=== PATIENT | female | born 1945 | race Caucasian/White ===

== ENCOUNTER 2016-08-16 14:12 | Emergency (ER) | payer MEDICARE, OTHER ==
[~2016-08-16 14:12] MED LIST: BAYER CHEWABLE81 MG PO; CIPRO500 MG PO; DIABETA5 MG PO; DUTOPROL 100-11 EACH; FISH OIL 1,0001 CA1 PO; GLUCOPHAGE500 MG PO; K-TAB10 MEQ PO; METOPROLOL SUCC; NEURONTIN 400400 MG PO; NEXIUM20 MG PO; OSTEO BI-FLEX1 EAC1 PO; PREVACID30 MG PO; TOPROL XL25 MG PO; VITAMIN B-1000 MCG/M IM; VITAMIN D31000 UNI2 PO; ZYRTEC10 MG PO
[2016-08-16 17:13] LABS: HEMATOCRIT 25.8 % (36.0-48.0); HEMOGLOBIN 7.6 g/dL (12-16); MCH 21.2 pg (26.0-34.0); MCHC 29.5 g/dL (31.0-37.0); MCV 72.1 fL (80.0-100.0); MEAN PLATELET VOLUME 10.7 fL (7.4-10.4); PLATELET COUNT 97 10x3/uL (130-400); RBC 3.58 10x6/uL (4.00-5.40); RDW 16.3 % (11.5-14.5); WBC 2.7 10x3/uL (4.8-10.8)
[2016-08-16 17:26] LABS: ALBUMIN 3.4 g/dL (3.4-5.0); ANION GAP 10.1 mmol/L (8-16); BILIRUBIN - TOTAL 0.29 mg/dL (0.2-1.3); CALCIUM 8.6 mg/dL (8.5-10.1); CARBON DIOXIDE 30.4 mmol/L (21.0-32.0); CREATININE - SERUM 0.9 mg/dL (0.6-1.3); POTASSIUM - SERUM 3.5 mmol/L (3.5-5.1); PROTEIN - SERUM 6.6 g/dL (6.4-8.2)
[2016-08-16 18:06] LABS: BASOPHILS 1 % (0.0-2.0); EOSINOPHILS 1 % (0-7); LYMPHOCYTES 46 % (15-50); MONOCYTES 2 % (2-11); NEUTROPHILS 47 % (40-80); PLATELET ESTIMATE DECREASED
[2016-08-16 18:07] LABS: ANISOCYTOSIS 1+; HYPOCHROMASIA 1+; MICROCYTOSIS 1+; POIKILOCYTOSIS 1+; TARGET CELLS 1+
== END 2016-08-16 18:27 | disposition home or self-care (01) ==
LOC: D.ER 14:12
PROVIDERS: Physician Assistant
DX: G89.18 Other acute postprocedural pain (principal); D61.818 Other pancytopenia; C55 Malignant neoplasm of uterus, part unspecified; I10 Essential (primary) hypertension; E11.9 Type 2 diabetes mellitus without complications; K21.9 Gastro-esophageal reflux disease without esophagitis

== ENCOUNTER 2016-08-19 05:43 | Observation (INO) | payer MEDICARE, OTHER ==
[~2016-08-19] VITALS: Ht 170.2 cm; Wt 103.4 kg
[2016-08-19] VITALS (18 sets, daily range): BP systolic 125–177; BP diastolic 54–96; BMI 36.1
[2016-08-19 06:36] LABS: BASOPHILS 0.3 % (0.0-2.0); EOSINOPHILS 1.5 % (0-7); HEMOGLOBIN 8.1 g/dL (12-16); IMMATURE GRANULOCYTES 0.3 % (0-5); LYMPHOCYTES 24.1 % (15-50); MCH 20.9 pg (26.0-34.0); MCHC 28.9 g/dL (31.0-37.0); MCV 72.4 fL (80.0-100.0); MONOCYTES 10.8 % (2-11); PLATELET COUNT 98 10x3/uL (130-400); RBC 3.87 10x6/uL (4.00-5.40); RDW 16.6 % (11.5-14.5); WBC 3.3 10x3/uL (4.8-10.8)
[2016-08-19 07:00] LABS: ALBUMIN 3.3 g/dL (3.4-5.0); ANION GAP 15.2 mmol/L (8-16); BILIRUBIN - TOTAL 0.54 mg/dL (0.2-1.3); CALCIUM 8.8 mg/dL (8.5-10.1); CARBON DIOXIDE 23.8 mmol/L (21.0-32.0); PROTEIN - SERUM 6.6 g/dL (6.4-8.2)
[2016-08-19 07:03] LABS: MAGNESIUM - SERUM 1.6 mg/dL (1.8-2.4); PHOSPHOROUS 2.8 mg/dL (2.5-4.9); TROPONIN-I 0.057 ng/mL (0.000-0.060)
[2016-08-19 07:30] LABS: APPEARANCE CLEAR (CLEAR); BILIRUBIN NEGATIVE (NEGATIVE); COLOR YELLOW (YELLOW); GLUCOSE 1000 mg/dL (NEGATIVE); KETONE NEGATIVE (NEGATIVE); LEUKOCYTE ESTERASE NEGATIVE (NEGATIVE); NITRITE NEGATIVE (NEGATIVE); PROTEIN NEGATIVE (NEGATIVE); SPECIFIC GRAVITY 1.015 (1.005-1.020); UROBILINOGEN NORMAL (NORMAL)
--- NOTE | 2016-08-19 10:00 | NUR ---
RECEIVED ADULT FEMALE FROM ER PER WHEELCHAIR AFTER SBAR HANDOFF RECEIVED. PALE. SKIN WARM AND DRY. SLIGHTLY DYSPNEIC. O2 STARTED AT 2 LITER/MIN PER NASAL CANNULA. SEE ADMIT ASSESSMENT. ATTENTIVE AT BEDSIDE. PIV LEFT WRIST PATENT WITH SALINE LOCK AND NO SIGNS OF COMPLICATIONS. ORIENTED TO ROOM AND POC. NEW ORDER NOTED.
[2016-08-19] MEDS ORDERED: ULTRAM50 MG PO (11:14)
[2016-08-19] MEDS ORDERED: ZANAFLEX4 MG PO (11:15)
[2016-08-19] MEDS ORDERED: VITAMIN E600 UNIT PO (11:17)
[2016-08-19] MEDS ORDERED: ZYRTEC10 MG PO (11:17)
--- NOTE | 2016-08-19 11:50 | NUR ---
1ST UNIT PRBC BEGUN AT 125ML/HR PER IV PUMP WITH BLOOD TUBING. INSTRUCTED TO NOTIFY STAFF MARILYN IF ANY SIGNS OF TRANSFUSION REACTION NOTED; THAT IS DYSPNEA, ITCHING, COUGHING, ANXIETY, CHEST PAIN. IV PATENT WITH SALINE AND NO SIGNS OF COMPLICATIONS.
--- NOTE | 2016-08-19 12:20 | NUR ---
NO SIGNS OF TRANSFUSION REACTION; IV SITE PATENT WITH NO SIGNS OF COMPLICATIONS. REMAINS STABLE. AT BEDSIDE.
--- NOTE | 2016-08-19 13:20 | NUR ---
REMAINS STABLE WITH NO SIGNS OF TRANSFUSION REACTION.
--- NOTE | 2016-08-19 14:35 | NUR ---
TRANSFUSION COMPLETED; NO SIGNS OF REACTION. SALINE 50ML TO FLUSH TUBING. IV SITE REMAINS PATENT WITH NO SIGNS OF COMPLCIATIONS.
--- NOTE | 2016-08-19 15:20 | NUR ---
SECOND UNIT OF PRBC BEGUN WITH NEW IV BLOOD TUBING PRIMED WITH SALINE TO INFUSE AT 125ML /HR PER IV PUMP. NO SIGNS OF COMPLICATIONS AT IV SITE. DENIES DYSPNEA. HAS HAD 3 DIARRHEA STOOLS SINCE ADMISSION TODAY BUT NOT FREQUENT NOW.
--- NOTE | 2016-08-19 16:15 | NUR ---
REMAINS STABLE WITH NO SIGNS OF TRANSFUSION REACTION. IV SITE WITHOUT SIGNS OF COMPLICATIONS. NO DYSPNEA. COLOR PINK
--- NOTE | 2016-08-19 17:30 | NUR ---
TRANSFUSION COMPLETE. FAMILY ATTENTIVE AT BEDSIDE. NO SIGNS OF TRANSFUSION REACTION. IV PATENT WITH NO SIGNS OF COMPLICATIONS. IV SALINE BEGUN TO FLUSH BLOOD TUBING.
[2016-08-19] MEDS ORDERED: NEURONTIN600 MG PO (17:54)
[2016-08-19] MEDS ORDERED: TORADOL10 MG PO (17:54)
--- NOTE | 2016-08-19 18:00 | NUR ---
PIV SALINE LOCKED LEFT WRIST; NO SIGNS OF COMPLICATIONS. COLOR PINK. SKIN WARM AND DRY. O2 CONT AT 2 L/MIN PER NASAL CANNULA. DENIES DYSPNEA.
--- NOTE | 2016-08-19 19:50 | NUR ---
AWAKE DURING INITIAL ROUNDS. INTRODUCED SELF. V/S TAKEN. BP 164/81. ASSESSMENT DONE. STATUS Dx: CHF/ANEMIA/NEUROPATHY/DIABETES. SALINE LOCK TO L WRIST AREA INTACT. O2 SAT 98% ON 2L/NC. TELEMETRY ON--SR WITH OCCL PVC's PER DIRECTOR VIDEO. FALL RISK PREVENTION OBSERVED.
--- NOTE | 2016-08-19 20:44 | NUR ---
CALL LIGHT ANSWERED. PT STATES SHE NEEDS SOMETHING FOR DIARRHEA. CALL PLACED TO [facility]AY QUINTANILLA AP[facility] AND RETURNED CALL WITH ORDERS.
--- NOTE | 2016-08-19 21:57 | NUR ---
HS MEDS GIVEN. SEE E-MAR.
--- NOTE | 2016-08-19 22:09 | NUR ---
FSBS 245mg/dl. 8 UNITS REGULAR INSULIN GIVEN PER SLIDING SCALE.
[2016-08-20 00:20] VITALS: BP 130/48
--- NOTE | 2016-08-20 00:20 | NUR ---
AWAKENED FOR V/S--STABLE.
--- NOTE | 2016-08-20 03:08 | NUR ---
APPEARS TO BE ASLEEP. LEFT UNDISTURBED.
[2016-08-20 04:10] VITALS: BP 138/97
--- NOTE | 2016-08-20 04:10 | NUR ---
EYES CLOSED. AWAKENED FOR V/S.
--- NOTE | 2016-08-20 06:00 | NUR ---
BARN HAND HERE TO DRAW AM LAB. SLEPT FAIRLY WELL DURING THE NIGHT. CONTINUING PLAN OF CARE.
[2016-08-20 06:28] LABS: BASOPHILS 0.3 % (0.0-2.0); HEMATOCRIT 29.6 % (36.0-48.0); IMMATURE GRANULOCYTES 0.3 % (0-5); LYMPHOCYTES 27.2 % (15-50); MCH 22.7 pg (26.0-34.0); MCHC 30.4 g/dL (31.0-37.0); MONOCYTES 10.9 % (2-11); NEUTROPHILS 59.3 % (40-80); PLATELET COUNT 86 10x3/uL (130-400); RBC 3.97 10x6/uL (4.00-5.40); RDW 17.7 % (11.5-14.5); WBC 3.6 10x3/uL (4.8-10.8)
[2016-08-20 06:40] LABS: MCV 74.6 fL (80.0-100.0)
[2016-08-20 07:07] LABS: ALBUMIN 3.1 g/dL (3.4-5.0); ANION GAP 9.1 mmol/L (8-16); BILIRUBIN - TOTAL 0.7 mg/dL (0.2-1.3); CALCIUM 8.4 mg/dL (8.5-10.1); CARBON DIOXIDE 28.7 mmol/L (21.0-32.0); CREATININE - SERUM 0.9 mg/dL (0.6-1.3); POTASSIUM - SERUM 3.8 mmol/L (3.5-5.1); PROTEIN - SERUM 6.2 g/dL (6.4-8.2)
[2016-08-20 08:10] VITALS: BP 137/57
--- NOTE | 2016-08-20 08:10 | NUR ---
RECEIVED IN ROOM. AWAKE. UP IN BATHROOM. RETURNED TO BED. NOTED FORMED STOOL. C/O RECTAL PAIN. STATES SHE IS DOING SLIGHTLY BETTER TODAY. LUNGS AND ABD SOUNDS ASCULTATED. WNL. MOVES ALL EXTREM. NS LOCK PATENT TO LT. OPERATIONS PROFESSIONAL ON PT.
--- NOTE | 2016-08-20 10:30 | NUR ---
SITTING UP IN BED. AT BEDSIDE. NO COMPLAINTS VOICED. REFUSED ZANAFLEX FOR PAIN/ DISCOMFORT
[2016-08-20 10:45] VITALS: Ht 170.2 cm; Wt 103.4 kg
--- NOTE | 2016-08-20 11:43 | NUR ---
pt resting in bed. states she is hoping to go home today.
[2016-08-20] MEDS ORDERED: REMERON15 MG PO (12:19)
--- NOTE | 2016-08-20 13:13 | NUR ---
Is the patient Alert and Oriented? Yes 0 * How many steps to enter\exit or inside your home? 2 0 * PCP DR CADENA 0 * Pharmacy [facility] FOR IMMEDIATE NEEDS 0 * Preadmission Environment Home with Family 0 * ADLs Independent 0 * Equipment Walker 0 * List name and contact numbers for known caregivers / representatives who currently or will assist patient after discharge: SPOUSE: CHANTELLE POLLARD [phone] * Community resources currently utilized None 0 * Additional services required to return to the preadmission environment? Yes 0 * Can the patient safely return to the preadmission environment? Yes 0 * Has this patient been hospitalized within the prior 30 days at any hospital? No 0 Grand Total: 0 PATIENT IS AWAKE AND ALERT. SHE IS NOT WEARING HER O2. SHE TELLS ME THAT DR. MAYES WANTS O2 FOR HER AT DISCHARGE. I CHECKED AND DID NOT FIND AN ORDER AND I COULD NOT FIND AN O2 SAT DOCUMENTED LESS THAN 93% OTHER THAN ON ARRIVAL SHE WAS 90% ON ROOM AIR. PATIENT STATES IT WAS DURING THE NIGHT AND SHE WAS TOLD IT WAS 88%. I CONTACTED DR. MAYES AND HE WANTS HER TO HAVE AN OVERNIGHT PULSE OX. I HAVE CONTACTED TATE AT [facility] AND SHE STATES THAT IF I WILL SEND A FACE SHEET THEY WILL DELIVER THE PULSE OX TO THE PATIENT'S HOME AND PICK IT UP IN THE AM AND CALL DR. MAYES FOR ORDERS FOR O2 IF NEEDED. PATIENT AND UNDERSTAND THAT THEY WILL HAVE PULSE OX DELIVERED AFTER THEY GET HOME AND INSTRUCTED IN HOW TO WEAR IT TONIGHT. PATIENT LIVES AT HOME WITH HER SPOUSE, CHANTELLE POLLARD. HE WILL BE DRIVING HER HOME TODAY WHEN SHE IS DISCHARGED. PATIENT'S PCP IS DR. CADENA. SHE GETS HER [facility]. SHE GETS HER OTHER MEDS FROM [facility]. PATIENT STATES SHE HAS A WALKER. THERE ARE 2 STEPS TO ENTER HER HOME. NO OTHER NEEDS AT THIS TIME.
--- NOTE | 2016-08-20 14:00 | NUR ---
NS LOCK REMOVED. CANNULA INTACT. SITE WITHOUT EDEMA OR ERYTHEMA.
--- NOTE | 2016-08-20 14:35 | NUR ---
D/C INSTRUCTIONS GIVEN AND EXPLAINED TO PT AND . QUESTIONS ANSWERED. RX TO BE PROCESSED BY PT'S PHARM. TO DRIVE PT HOME. ALL PT BELONGINGS WITH PT. PT STATES SHE WILL TAKE ALL HER MEDS AFTER SHE GETS HOME. REVIEWED WHICH MEDS SHE HAS ALREADY RECEIVED TODAY. TO CAR VIA W/C
--- NOTE | 2016-08-27 14:38 | EC ---
PATIENT:LON POLLARD DATE OF SERVICE: 08/19/16 SEX: F MEDICAL RECORD: [id number] DATE OF : [birth year] [facility] AGE OF PATIENT: 71 ADMISSION DATE: 08/19/16 REFERRING PHYSICIAN: INTERPRETING PHYSICIAN: BENTON WHITT MD ECHOCARDIOGRAM REPORT ECHO CHARGES 4 ECHO COMPLETE CLINICAL DIAGNOSIS: ELEVATED BNP SOB HX CAD/STENTS ECHOCARDIOGRAPHIC MEASUREMENTS (adult normal given) AC root (d.<3.7cm) 3.2 LV Septum d (<1.2 cm> 1.4 Valve Excursion 2.0 LV Septum (systole) 1.7 Left Atria (s.<4.0cm> 3.9 LVPW d(<1.2cm) 1.6 RV (d.<2.3cm) 4.0 LVPW (sytole) 1.8 LV diastole(<5.6CM) 5.5 MV E-F(>70mm/sec) LV systole 3.6 LVOT Diameter 1.7 MV exc.(>10mm) 1.6 Est.ejection fraction (50-75%) Pericardial Effusion N DOPPLER: LVIT A 108 E 99.0 LA RVSP 42 LVOT 110 AOP1/2T Asc. Ao 165 RVOT 121 RA PA 138 AV Gradient Peak 10.95 AV Mean 6.95 AV Area 1.6 MV Gradient Peak 6.90 MV Mean 2.95 MV Area COMMENTS: Forensic Technician: Lainey PLASENCIA Bullet Maker:Lainey Kinney TAPE# PACS DATE OF SERVICE: 08/20/2016 Echocardiogram FINDINGS: 1. Left ventricular chamber size is within normal limits. Left ventricular systolic function is normal. Overall ejection fraction estimated at 55%. 2. Left atrium, right atrium and right ventricular chamber sizes are within normal limits. 3. Valvular structures have normal structure and motion. ECHOCARDIOGRAM REPORT [id number] LON POLLARD 4. Doppler interrogation reveals mild mitral regurgitation, mild tricuspid regurgitation, no other valvular insufficiency or stenosis and pulmonary systolic pressure is normal estimated 42 mmHg. 5. No evidence of pericardial effusion or left ventricular thrombus. TRANSINT:[id number] Voice Confirmation ID: [id number] DOCUMENT ID: [id number] BENTON WHITT MD at 7478 CC: [id number] DICTATION DATE: 08/20/16 1216 RN TELEMETRY: 08/20/16 1515 DIS IN 08/20/16 [place] [id number] [place] [id number]
== END 2016-08-20 15:49 | disposition home or self-care (01) ==
LOC: D.ER 05:43 → D.WS 09:55 → OBSVTIME 09:55 → D.WS 08-20 15:49
PROVIDERS: Surgery; ADMIT Family Medicine
DX: D64.9 Anemia, unspecified (principal); R55 Syncope and collapse; E11.65 Type 2 diabetes mellitus with hyperglycemia; E11.40 Type 2 diabetes mellitus with diabetic neuropathy, unspecified; G25.81 Restless legs syndrome; C55 Malignant neoplasm of uterus, part unspecified

== ENCOUNTER 2017-02-06 05:24 | Day surgery (SDC) | payer MEDICARE, OTHER ==
[2017-02-05 12:14] LABS: CREATININE - SERUM 0.7 mg/dL (0.6-1.3); UREA NITROGEN 10 mg/dL (7-18)
[2017-02-05 12:15] LABS: CALC OSMOLALITY 284 mosm/kg (275-300); CALCIUM 8.8 mg/dL (8.5-10.1); CARBON DIOXIDE 28.6 mmol/L (21.0-32.0); CHLORIDE - SERUM 104 mmol/L (98-107); POTASSIUM - SERUM 3.7 mmol/L (3.5-5.1); SODIUM 142 mmol/L (136-145); eGFR NON AFRICAN AMERICAN 88 mL/min (90-120)
[2017-02-05 12:16] LABS: GLUCOSE 144 mg/dL (74-106)
[2017-02-05 12:19] LABS: BASOPHILS 0.3 % (0-2); EOSINOPHILS 2.5 % (0-7); HEMATOCRIT 35.3 % (36.0-48.0); HEMOGLOBIN 11.8 g/dL (12-16); LYMPHOCYTES 39.8 % (15-50); MCH 29.9 pg (26.0-34.0); MCHC 33.4 g/dL (31.0-37.0); MCV 89.4 fL (80.0-100.0); MEAN PLATELET VOLUME 12.2 fL (7.4-10.4); MONOCYTES 11.7 % (2-11); NEUTROPHILS 45.7 % (40-80); RBC 3.95 10x6/uL (4.00-5.40); RDW 13.6 % (11.5-14.5); WBC 3.2 10x3/uL (4.8-10.8)
[2017-02-05 12:21] LABS: APTT 27.8 SECONDS (22.8-39.4); INR 0.98 (0.85-1.17); PLATELET COUNT 111 10x3/uL (130-400); PROTIME 12.8 SECONDS (11.6-15.0)
[~2017-02-06] VITALS: Ht 170.2 cm; Wt 95.7 kg
[~2017-02-06 05:24] MED LIST changes: +GLUCOPHAGE1000 MG PO; -GLUCOPHAGE500 MG PO; +NEURONTIN600 MG PO; +PROBIOTIC1 EAC1 PO; +REMERON15 MG PO; +TORADOL10 MG PO; +ULTRAM50 MG PO; +VITAMIN E600 UNIT PO; +ZANAFLEX4 MG PO; +ZYLOPRIM100 MG PO
[2017-02-06] MEDS ORDERED: SYNTHROID25 MCG PO (06:14)
[2017-02-06 06:19] VITALS: BP 146/50; Ht 170.2 cm; Wt 95.7 kg
--- NOTE | 2017-02-06 08:22 | NUR ---
PATIENT HAS NO SCD ON LEFT LOWER LEG DUE TO B\P CUFF ON LEFT LOWER LEG, KARLA.
[2017-02-06] MEDS ORDERED: DILAUDID2 MG PO (09:36)
--- NOTE | 2017-02-06 10:27 | NUR ---
THIS PATIENT BECOME NAUSEATED AFTER TRANSFERRING BACK TO OUTPATIENT. CONSULTED ANESTHESIA. GIVEN ORDERS TO ADMINISTER ZOFRAN 4MG IV X1 NOW. THIS WILL BE GIVEN IN OUTPATIENT.
--- NOTE | 2017-02-06 11:56 | NUR ---
1045--ZOFRAN 4MG GIVEN SIVP FOR NAUSEA, COOL WASH CLOTH PROVIDED. PT DENIES FURTHER NEEDS, WILL CONTINUE TO MONITOR. JATINDER LICONA
--- NOTE | 2017-02-06 12:00 | NUR ---
1200--PT VERBALIZES NAUSEA IS GONE, FULL LIQUID TRAY SERVED. PT DENIES FURTHER NEEDS, WILL CONTINUE TO MONITOR. JATINDER LICONA
--- NOTE | 2017-02-06 12:59 | NUR ---
1250--PT COMPLAINS OF DIZZINESS, LAYING WITH EYES CLOSED. WILL CONTINUE TO MONITOR. JATINDER RN
--- NOTE | 2017-02-06 16:31 | NUR ---
1500--PT VOIDS WITHOUT DIFFICULTY, IV DC'D. JATINDER LICONA 5106--DISCHARGE INSTRUCTIONS GIVEN, PT VERBALIZES UNDERSTANDING. PT OFF UNIT VIA WC. JATINDER LICONA
--- NOTE | 2017-02-07 13:45 | OP ---
PATIENT NAME: LON POLLARD MEDICAL RECORD: [id number] :[birth year] LOCATION:D.OPS ADMISSION DATE: SURGEON: REY GEIGER MD DATE OF OPERATION: 02/06/2017 PREOPERATIVE DIAGNOSES: 1. Ventral incisional hernia. 2. Umbilical hernia. 3. Diabetes mellitus. 4. Hyperlipidemia. 5. Coronary artery disease. 6. Gout. 7. Gastroesophageal reflux disease. 8. Fibromyalgia. POSTOPERATIVE DIAGNOSES: 1. Umbilical hernia. 2. Diabetes mellitus. 3. Hyperlipidemia. 4. Coronary artery disease. 5. Gout. 6. Gastroesophageal reflux disease. 7. Fibromyalgia. PROCEDURE: 1. Laparoscopic lysis of adhesions times 30 minutes. 2. Umbilical hernia repair without mesh. SURGEON: Rey Geiger MD REPORT OF PROCEDURE: The patient's abdomen was prepped and draped in sterile fashion. A Veress needle was inserted in the left upper quadrant and the abdomen was insufflated. A 5-mm trocar was placed in the left lateral abdomen. We inspected the Veress needle and saw there was no sign of any injury to bowel or surrounding structures. Another 5-mm trocar was placed in the right subcostal region. There was noted to be some adhesions present in the midline extending out to the right upper quadrant and underneath a right subcostal incision from a previous open cholecystectomy. The lysis of adhesions was performed of this fatty omental adhesions to the anterior abdominal wall. This was done carefully with sharp dissection and electrocautery. We eventually were able to get all the tissue off the anterior abdominal wall and could inspect it closely. I did a thorough inspection and saw no sign of a hernia being present. We could not find any signs at all that there was hernia tissue visible at this point, we inspected the periumbilical space was able to find a small umbilical hernia. At this point, we irrigated out the abdomen thoroughly with normal saline. There was some significant blood loss, it was there, but there did not appear to be any surgical bleeding. There seemed to be some diffuse oozing from the omental tissue from the lysis of adhesions. At this point, the ports and insufflation were then removed. A semicircular incision was made on the inferior aspect of the umbilicus. The umbilical tissue was transected just below the umbilicus through the patient's hernia sac. The hernia defect was dissected free from the hernia sac all the way down to the fascial edges. The hernia defect was about 2 cm wide and about 1 cm from top to bottom. We freed up the surface above and below the fascia and then reapproximated the fascia transversely using interrupted 0 Prolenes times 6. We then tacked the umbilicus OPERATIVE REPORT [id number] LON POLLARD down using the interrupted 3-0 Vicryl. After irrigating the wound out, then we reapproximated the subcutaneous tissues with interrupted 3-0 Vicryls. We infused with a total of 10 mL of the surrounding tissues of all the incisions and then closed the incisions with subcutaneous 5-0 Monocryl. COMPLICATIONS: None. CONDITION: Stable. ANESTHESIA: General endotracheal and local. BLOOD LOSS: 100 mL. TRANSINT:[id number] Voice Confirmation ID: [id number] DOCUMENT ID: [id number] REY GEIGER MD at 1345 CC: ARLEEN CADENA MD [id number] DICTATION DATE: 02/06/1742 MEAT GRADER: 02/06/17 1100 [facility] 02/06/17 [facility] [address] [place] [address]
== END 2017-02-06 15:15 | disposition home or self-care (01) ==
LOC: D.OPS 05:24 → D.PAN 07:30 → D.OPS 07:30
PROVIDERS: Anesthesiology; Surgery
DX: K43.2 Incisional hernia without obstruction or gangrene (principal); K42.9 Umbilical hernia without obstruction or gangrene; E11.9 Type 2 diabetes mellitus without complications; E78.5 Hyperlipidemia, unspecified; I25.10 Atherosclerotic heart disease of native coronary artery without angina pectoris; M10.9 Gout, unspecified; K21.9 Gastro-esophageal reflux disease without esophagitis; M79.7 Fibromyalgia; Z01.812 Encounter for preprocedural laboratory examination

== ENCOUNTER → 2017-07-07 13:27 | Outpatient (CLI) | payer MEDICARE, OTHER ==
[2017-02-06 06:19] VITALS: BMI 33.1
[~2017-07-07 13:27] MED LIST changes: +DILAUDID2 MG PO; +SYNTHROID25 MCG PO
== END | disposition home or self-care (01) ==
LOC: D.MAMMO 06-03 13:00
DX: Z12.31 Encounter for screening mammogram for malignant neoplasm of breast (principal)

== ENCOUNTER 2017-10-20 14:30 | Outpatient (CLI) | payer MEDICARE, OTHER ==
[2017-02-06 06:19] VITALS: BMI 33.1
== END 2017-10-20 23:59 | disposition home or self-care (01) ==
LOC: D.CT 14:30
DX: R10.9 Unspecified abdominal pain (principal)

== ENCOUNTER → 2017-11-12 09:55 | Outpatient (CLI) | payer MEDICARE, OTHER ==
[2017-02-06 06:19] VITALS: BMI 33.1
[2017-11-12 11:18] LABS: BILIRUBIN - DIRECT 0.21 mg/dL (0.00-0.30); BILIRUBIN - INDIRECT 0.39 mg/dL (0.00-1.00); BILIRUBIN - TOTAL 0.6 mg/dL (0.2-1.3); PROTEIN - SERUM 6.1 g/dL (6.4-8.2)
== END | disposition home or self-care (01) ==
LOC: D.LAB 09:55 → D.US 10:30
PROVIDERS: Internal Medicine Gastroenterology
DX: R93.8 Abnormal findings on diagnostic imaging of other specified body structures (principal); R10.9 Unspecified abdominal pain; R19.7 Diarrhea, unspecified; R12 Heartburn

== ENCOUNTER 2018-01-15 06:37 | Outpatient (CLI) | payer MEDICARE, OTHER ==
[~2018-01-15] VITALS: Ht 170.2 cm; Wt 91.8 kg
[2018-01-15 07:05] LABS: BASOPHILS 0.7 % (0-2); EOSINOPHILS 3.1 % (0-7); HEMATOCRIT 31.5 % (36.0-48.0); HEMOGLOBIN 10.1 g/dL (12-16); LYMPHOCYTES 40.3 % (15-50); MCH 28.2 pg (26.0-34.0); MCHC 32.1 g/dL (31.0-37.0); MEAN PLATELET VOLUME 11.4 fL (7.4-10.4); MONOCYTES 9.9 % (2-11); PLATELET COUNT 119 10x3/uL (130-400); RBC 3.58 10x6/uL (4.00-5.40); RDW 13.8 % (11.5-14.5); WBC 2.9 10x3/uL (4.8-10.8)
[2018-01-15 07:19] LABS: INR 1.16 (0.85-1.17); PROTIME 14.4 SECONDS (11.6-15.0)
[2018-01-15 07:20] LABS: APTT 32.8 SECONDS (22.8-39.4); CALC OSMOLALITY 282 mosm/kg (275-300); CALCIUM 8.3 mg/dL (8.5-10.1); CARBON DIOXIDE 29.1 mmol/L (21.0-32.0); CHLORIDE - SERUM 106 mmol/L (98-107); CREATININE - SERUM 0.7 mg/dL (0.6-1.3); GLUCOSE 124 mg/dL (74-106); POTASSIUM - SERUM 3.9 mmol/L (3.5-5.1); SODIUM 142 mmol/L (136-145); UREA NITROGEN 11 mg/dL (7-18); eGFR NON AFRICAN AMERICAN 88 mL/min (90-120)
[2018-01-15] MEDS ORDERED: OMEPRAZOLE40 MG PO (07:27)
[2018-01-15] MEDS ORDERED: CARAFATE1 G (07:28)
[2018-01-15 07:29] VITALS: BP 126/50; Ht 170.2 cm; Wt 91.8 kg
[2018-01-15 11:24] LABS: NEUT - BF 1 %
[2018-01-15 11:25] LABS: MACROPHAGES BF 19 %; MESOTHELIALS BF 18 %
== END 2018-01-15 13:05 | disposition home or self-care (01) ==
LOC: D.SP 06:37 → D.CT 09:00 → D.RAD 09:00 → D.SP 13:05
PROVIDERS: Specialist
DX: R18.8 Other ascites (principal); Z01.812 Encounter for preprocedural laboratory examination

== ENCOUNTER → 2018-01-19 08:35 | Outpatient (CLI) | payer MEDICARE, OTHER ==
[2018-01-15 07:29] VITALS: BMI 31.7
[~2018-01-19 08:35] MED LIST changes: +CARAFATE1 G; +OMEPRAZOLE40 MG PO; +VITAMIN E1000 UNI1 PO
[2018-01-19 09:39] LABS: % SATURATION 8 % (15-55); IRON 33 ug/dl (35-150); TOTAL IRON BIND CAPACITY 394 ug/dl (260-445); UNSAT IRON BIND CAPACITY 361 ug/dl (150-375)
[2018-01-20 07:32] LABS: HEPATITIS C ANTIBODY 0.1 (0.0-0.9)
[2018-01-20 10:19] LABS: ANA REFLEX - DIRECT Negative (Negative)
[2018-01-20 11:20] LABS: ALPHA FETOPROTEIN -(TUMOR MRK) 6.2 ng/mL (0.0-8.3)
[2018-01-21 15:25] LABS: MITOCHONDRIAL ANTIBODY 31.5 Units (0.0-20.0); SMOOTH MUSCLE ABS (ACTIN) 11 Units (0-19)
== END | disposition home or self-care (01) ==
LOC: D.MRI 08:00 → D.LAB 08:35 → D.MRI 09:00
PROVIDERS: Internal Medicine Gastroenterology
DX: K76.6 Portal hypertension (principal); I83.90 Asymptomatic varicose veins of unspecified lower extremity; R93.8 Abnormal findings on diagnostic imaging of other specified body structures; D36.9 Benign neoplasm, unspecified site

== ENCOUNTER 2018-02-20 08:56 | Outpatient (CLI) | payer MEDICARE, OTHER ==
[~2018-02-20] VITALS: Ht 170.2 cm; Wt 88.6 kg
[~2018-02-20 08:56] MED LIST changes: -VITAMIN E1000 UNI1 PO
[2018-02-20 09:16] LABS: BASOPHILS 0.3 % (0-2); EOSINOPHILS 2.7 % (0-7); HEMATOCRIT 29.9 % (36.0-48.0); HEMOGLOBIN 9.6 g/dL (12-16); LYMPHOCYTES 39.1 % (15-50); MCH 26.9 pg (26.0-34.0); MCHC 32.1 g/dL (31.0-37.0); MCV 83.8 fL (80.0-100.0); MEAN PLATELET VOLUME 10.8 fL (7.4-10.4); MONOCYTES 10.8 % (2-11); NEUTROPHILS 47.1 % (40-80); PLATELET COUNT 94 10x3/uL (130-400); RBC 3.57 10x6/uL (4.00-5.40); RDW 15.6 % (11.5-14.5)
[2018-02-20 09:32] LABS: ANION GAP 9.8 mmol/L (8-16); CALCIUM 8.4 mg/dL (8.5-10.1); CARBON DIOXIDE 28.6 mmol/L (21.0-32.0); CREATININE - SERUM 0.9 mg/dL (0.6-1.3); POTASSIUM - SERUM 3.4 mmol/L (3.5-5.1)
[2018-02-20 09:40] LABS: APTT 30.6 SECONDS (22.8-39.4); INR 1.16 (0.85-1.17); PROTIME 14.4 SECONDS (11.6-15.0)
[2018-02-20 09:57] LABS: PLATELET ESTIMATE DECREASED
[2018-02-20] MEDS ORDERED: VITAMIN E1000 UNI1 PO (10:06)
[2018-02-20 10:43] VITALS: BP 136/61; Ht 170.2 cm; Wt 88.6 kg
== END 2018-02-20 15:30 | disposition home or self-care (01) ==
LOC: D.SP 08:56 → D.CT 11:00 → D.SP 11:00
PROVIDERS: Radiology Diagnostic Radiology
DX: K74.60 Unspecified cirrhosis of liver (principal); E11.65 Type 2 diabetes mellitus with hyperglycemia; E11.40 Type 2 diabetes mellitus with diabetic neuropathy, unspecified; G25.81 Restless legs syndrome; Z01.812 Encounter for preprocedural laboratory examination

== ENCOUNTER → 2018-04-28 14:28 | Outpatient (CLI) | payer MEDICARE, OTHER ==
[2018-02-20 10:43] VITALS: BMI 30.6
[~2018-04-28 14:28] MED LIST changes: +VITAMIN E1000 UNI1 PO
== END | disposition home or self-care (01) ==
LOC: D.CT 14:28
DX: R10.9 Unspecified abdominal pain (principal)

== ENCOUNTER 2018-05-06 16:06 | Inpatient (IN) | payer MEDICARE, OTHER ==
[~2018-05-06] VITALS: Ht 170.2 cm; Wt 90.7 kg
--- NOTE | ~2018-05-06 | MORECARE ---
CASE MANAGEMENT DISCHARGE SUMMARY PATIENT: LON POLLARD UNIT: [id number] ADM DATE: 05/06/18 AGE: 72 : [birth year] SEX: F ROOM/BED: D.2218 AUTHOR: ALO MARINO PHYSICIAN: REFERRING PHYSICIAN: ARLEEN CADENA MD DATE OF SERVICE: 05/07/18 Discharge Plan Patient Name: LON POLLARD Facility: [facility]:[place] : 1945 Planned Disposition: Home Anticipated Discharge Date: Discharge Date: Expected LOS: Initial Reviewer: [email or web address] Initial Review Date: 05/06/2018 Generated: 05/07/18 3:01 pm Comments DCP- Discharge Planning Updated by [email or web address]: Trini Milton on 05/07/18 12:[address] Patient Name: LON POLLARD Admission Status: Elective Accout number: [id number] Admission Date: 05-06-2018 : 1945 Admission Diagnosis: Attending: ARLEEN NGUYEN Current LOS: 1 Anticipated DC Date: Planned Disposition: Home Primary Insurance: MEDICARE A & B Discharge Planning Comments: CM met with patient to assess discharge planning needs. Patient stated that she is independent with her care at home. She plans to return there at [place]. Her will be the one to drive her home. She denies any DME and does not use any HH, nor does she think she will need it when she goes home. CM will continue to follow and assist with DC planning Ships Or Barges Loader: Trini Milton DCPIA - Discharge Planning Initial Assessment Updated by [email or web address]: Trini Milton on 05/07/18 1:54 pm * Is the patient Alert and Oriented? Yes * How many steps to enter\exit or inside your home? * PCP TAJ * Pharmacy [facility] [address] * Preadmission Environment Home Alone * ADLs Independent * Equipment None * List name and contact numbers for known caregivers / representatives who currently or will assist patient after discharge: CHANTELLE () [phone] * Verbal permission to speak to the caregivers and representatives has been obtained from the patient. Yes * Community resources currently utilized None * Additional services required to return to the preadmission environment? No * Can the patient safely return to the preadmission environment? Yes * Has this patient been hospitalized within the prior 30 days at any hospital? No Patient Name: LON POLLARD Page [phone] at 1401 All edits/amendments must be made on the electronic document DICTATION DATE: 05/07/18 1400 FIRE ENGINE PUMP OPERATOR: HALIE 05/07/18 1400 RPT#: [id number] DC DATE: STATUS: ADM IN [facility] [address] [place] [address] END OF REPORT
[2018-05-06 17:07] LABS: BASOPHILS 0.3 % (0-2); EOSINOPHILS 1.9 % (0-7); HEMATOCRIT 32.3 % (36.0-48.0); HEMOGLOBIN 10.7 g/dL (12-16); IMMATURE GRANULOCYTES 0.3 % (0-5); LYMPHOCYTES 33.5 % (15-50); MCH 28.9 pg (26.0-34.0); MCHC 33.1 g/dL (31.0-37.0); MCV 87.3 fL (80.0-100.0); MEAN PLATELET VOLUME 11.1 fL (7.4-10.4); MONOCYTES 11.9 % (2-11); NEUTROPHILS 52.1 % (40-80); WBC 3.6 10x3/uL (4.8-10.8)
[2018-05-06 17:19] LABS: PLATELET COUNT 137 10x3/uL (130-400)
[2018-05-06 17:26] VITALS: BP 148/53; BMI 31.4
[2018-05-06 17:53] LABS: ALKALINE PHOSPHATASE 67 U/L (46-116); AMYLASE - SERUM 9 U/L (25-115); CALCIUM 8.4 mg/dL (8.5-10.1); CARBON DIOXIDE 27.9 mmol/L (21.0-32.0); LIPASE 124 U/L (73-393); PROTEIN - SERUM 5.3 g/dL (6.4-8.2); UREA NITROGEN 12 mg/dL (7-18)
[2018-05-06 18:05] LABS: ALT (SGPT) 21 U/L (10-68); CALC OSMOLALITY 279 mosm/kg (275-300); CHLORIDE - SERUM 105 mmol/L (98-107); CREATININE - SERUM 0.7 mg/dL (0.6-1.3); POTASSIUM - SERUM 3.2 mmol/L (3.5-5.1); SODIUM 141 mmol/L (136-145); eGFR NON AFRICAN AMERICAN 88 mL/min (90-120)
[2018-05-06 18:08] LABS: GLUCOSE 81 mg/dL (74-106)
[2018-05-06 19:05] LABS: APPEARANCE CLEAR (CLEAR); BILIRUBIN NEGATIVE (NEGATIVE); COLOR YELLOW (YELLOW); GLUCOSE NEGATIVE (NEGATIVE); KETONE NEGATIVE (NEGATIVE); NITRITE NEGATIVE (NEGATIVE); PROTEIN NEGATIVE (NEGATIVE); SPECIFIC GRAVITY 1.015 (1.005-1.020); UROBILINOGEN NORMAL (NORMAL)
[2018-05-06 19:07] LABS: BACTERIA FEW /hpf (NONE SEEN); EPITHELIAL CELLS OCC /hpf (0-5); WHITE CELLS - URINE 0-5 /hpf (0-5)
[2018-05-06 20:00] VITALS: BP 148/47
[2018-05-07 04:49] VITALS: BP 150/50
[2018-05-07 08:33] VITALS: BP 136/60
[2018-05-07 09:22] LABS: HEMOGLOBIN 10.6 g/dL (12-16); MCH 28.7 pg (26.0-34.0); MCHC 33.1 g/dL (31.0-37.0); MCV 86.7 fL (80.0-100.0); MEAN PLATELET VOLUME 10.3 fL (7.4-10.4); PLATELET COUNT 117 10x3/uL (130-400); RBC 3.69 10x6/uL (4.00-5.40); RDW 16.1 % (11.5-14.5); WBC 2.8 10x3/uL (4.8-10.8)
[2018-05-07 09:32] LABS: CALC OSMOLALITY 289 mosm/kg (275-300); CALCIUM 8.1 mg/dL (8.5-10.1); CARBON DIOXIDE 28.7 mmol/L (21.0-32.0); CHLORIDE - SERUM 108 mmol/L (98-107); CREATININE - SERUM 0.7 mg/dL (0.6-1.3); GLUCOSE 102 mg/dL (74-106); POTASSIUM - SERUM 3.3 mmol/L (3.5-5.1); SODIUM 146 mmol/L (136-145); UREA NITROGEN 9 mg/dL (7-18); eGFR NON AFRICAN AMERICAN 88 mL/min (90-120)
[2018-05-07 10:11] LABS: EOSINOPHILS 2 % (0-7); HYPOCHROMASIA OCC; LYMPHOCYTES 45 % (15-50); MONOCYTES 9 % (2-11); NEUTROPHILS 44 % (40-80); PLATELET ESTIMATE DECREASED; ROULEAUX OCC
[2018-05-07 12:00] VITALS: BP 111/53
[2018-05-07 12:54] VITALS: Ht 170.2 cm; Wt 90.7 kg
[2018-05-07 13:10] LABS: INR 1.18 (0.85-1.17); PROTIME 14.5 SECONDS (11.6-15.0)
[2018-05-07 14:08] LABS: % SATURATION 20 % (15-55); IRON 57 ug/dl (35-150); TOTAL IRON BIND CAPACITY 272 ug/dl (260-445); UNSAT IRON BIND CAPACITY 215 ug/dl (150-375)
[2018-05-07 16:20] VITALS: BP 148/52
[2018-05-07 20:00] VITALS: BP 151/56
[2018-05-08] VITALS: BP 112/40
[2018-05-08 04:00] VITALS: BP 121/42
[2018-05-08 06:13] LABS: BASOPHILS 0.4 % (0-2); EOSINOPHILS 2.4 % (0-7); HEMATOCRIT 28.9 % (36.0-48.0); HEMOGLOBIN 9.3 g/dL (12-16); MCH 28.1 pg (26.0-34.0); MCHC 32.2 g/dL (31.0-37.0); MCV 87.3 fL (80.0-100.0); MEAN PLATELET VOLUME 11.5 fL (7.4-10.4); MONOCYTES 15.2 % (2-11); PLATELET COUNT 109 10x3/uL (130-400); RBC 3.31 10x6/uL (4.00-5.40); WBC 2.5 10x3/uL (4.8-10.8)
[2018-05-08 06:25] LABS: ALBUMIN 2.5 g/dL (3.4-5.0); ALKALINE PHOSPHATASE 67 U/L (46-116); ALT (SGPT) 17 U/L (10-68); BILIRUBIN - TOTAL 0.41 mg/dL (0.2-1.3); CALC OSMOLALITY 276 mosm/kg (275-300); CALCIUM 7.8 mg/dL (8.5-10.1); CARBON DIOXIDE 26.1 mmol/L (21.0-32.0); CHLORIDE - SERUM 106 mmol/L (98-107); CREATININE - SERUM 0.7 mg/dL (0.6-1.3); GLUCOSE 89 mg/dL (74-106); POTASSIUM - SERUM 3.4 mmol/L (3.5-5.1); PROTEIN - SERUM 5.9 g/dL (6.4-8.2); SODIUM 140 mmol/L (136-145); UREA NITROGEN 11 mg/dL (7-18); eGFR NON AFRICAN AMERICAN 88 mL/min (90-120)
[2018-05-08 07:17] LABS: APTT 36.9 SECONDS (22.8-39.4); INR 1.23 (0.85-1.17)
[2018-05-08 08:21] LABS: FOLATE (FOLIC ACID) - SERUM 12.2 ng/mL (>3.0)
[2018-05-08 09:03] VITALS: BP 139/52
[2018-05-08 10:57] LABS: PROTEIN - BODY FLUID 1.4 G/DL
[2018-05-08 12:08] LABS: MACROPHAGES BF 16 %; MESOTHELIALS BF 13 %; NEUT - BF 7 %
[2018-05-08 12:33] VITALS: BP 132/45
[2018-05-08 16:38] VITALS: BP 154/47
[2018-05-08 19:54] VITALS: BP 161/55
[2018-05-09] VITALS (7 sets, daily range): BP systolic 111–136; BP diastolic 42–88
[2018-05-09 05:27] LABS: BASOPHILS 0.4 % (0-2); EOSINOPHILS 2.2 % (0-7); HEMATOCRIT 28.3 % (36.0-48.0); HEMOGLOBIN 9.3 g/dL (12-16); LYMPHOCYTES 46.6 % (15-50); MCH 28.6 pg (26.0-34.0); MCHC 32.9 g/dL (31.0-37.0); MCV 87.1 fL (80.0-100.0); MEAN PLATELET VOLUME 11.2 fL (7.4-10.4); MONOCYTES 12.1 % (2-11); NEUTROPHILS 38.7 % (40-80); PLATELET COUNT 107 10x3/uL (130-400); RBC 3.25 10x6/uL (4.00-5.40); RDW 15.7 % (11.5-14.5); WBC 2.3 10x3/uL (4.8-10.8)
[2018-05-09 05:38] LABS: CALC OSMOLALITY 275 mosm/kg (275-300); CALCIUM 7.7 mg/dL (8.5-10.1); CARBON DIOXIDE 28.2 mmol/L (21.0-32.0); CHLORIDE - SERUM 105 mmol/L (98-107); CREATININE - SERUM 0.7 mg/dL (0.6-1.3); GLUCOSE 88 mg/dL (74-106); MAGNESIUM - SERUM 1.2 mg/dL (1.8-2.4); POTASSIUM - SERUM 3.8 mmol/L (3.5-5.1); SODIUM 139 mmol/L (136-145); UREA NITROGEN 9 mg/dL (7-18); eGFR NON AFRICAN AMERICAN 88 mL/min (90-120)
[2018-05-09] MEDS ORDERED: LASIX40 MG PO (13:00)
[2018-05-09] MEDS ORDERED: ALDACTONE100 MG PO (13:01)
== END 2018-05-09 16:33 | disposition home or self-care (01) | DRG 433 ==
LOC: D.MS 16:06
PROVIDERS: Family Medicine; General Practice; Internal Medicine Nephrology; Specialist
PROC: 0W9G3ZZ Drainage of Peritoneal Cavity, Percutaneous Approach (ICD-10-PCS; principal; 2018-05-08 07:58)
DX: K74.60 Unspecified cirrhosis of liver (principal); D61.818 Other pancytopenia; L03.311 Cellulitis of abdominal wall; E11.9 Type 2 diabetes mellitus without complications; I10 Essential (primary) hypertension; I25.10 Atherosclerotic heart disease of native coronary artery without angina pectoris; K21.9 Gastro-esophageal reflux disease without esophagitis; E87.6 Hypokalemia; E78.5 Hyperlipidemia, unspecified

== ENCOUNTER → 2018-07-21 08:49 | Outpatient (CLI) | payer MEDICARE, OTHER ==
[2018-05-07 12:54] VITALS: BMI 31.3
[~2018-07-21 08:49] MED LIST changes: +ALDACTONE100 MG PO; +LASIX40 MG PO
[2018-07-21 09:58] LABS: BASOPHILS 0.8 % (0-2); HEMATOCRIT 30.9 % (36.0-48.0); HEMOGLOBIN 10.1 g/dL (12-16); IMMATURE GRANULOCYTES 0.3 % (0-5); LYMPHOCYTES 31.8 % (15-50); MCH 28.5 pg (26.0-34.0); MCHC 32.7 g/dL (31.0-37.0); MEAN PLATELET VOLUME 11.6 fL (7.4-10.4); MONOCYTES 11.7 % (2-11); NEUTROPHILS 51.4 % (40-80); RBC 3.55 10x6/uL (4.00-5.40); RDW 14.2 % (11.5-14.5); WBC 3.8 10x3/uL (4.8-10.8)
[2018-07-21 09:59] LABS: PLATELET COUNT 139 10x3/uL (130-400)
[2018-07-21 10:09] LABS: ALBUMIN 3.3 g/dL (3.4-5.0); BILIRUBIN - DIRECT 0.13 mg/dL (0.00-0.30); BILIRUBIN - INDIRECT 0.22 mg/dL (0.00-1.00); BILIRUBIN - TOTAL 0.35 mg/dL (0.2-1.3)
[2018-07-21 10:11] LABS: INR 1.09 (0.85-1.17); PROTIME 13.6 SECONDS (11.6-15.0)
== END | disposition home or self-care (01) ==
LOC: D.US 05-05 09:00 → D.LAB 05-05 09:30 → D.US 08:49
PROVIDERS: Internal Medicine Gastroenterology
DX: K76.0 Fatty (change of) liver, not elsewhere classified (principal); R94.5 Abnormal results of liver function studies; K74.60 Unspecified cirrhosis of liver

== ENCOUNTER → 2019-01-18 09:00 | Outpatient (CLI) | payer MEDICARE, OTHER ==
[2018-05-07 12:54] VITALS: BMI 31.3
[~2019-01-18 09:00] MED LIST changes: -DIABETA5 MG PO; +GLYBURIDE5 M1 PO; +VITAMIN B-121000 MCG PO
[2019-01-18 09:43] LABS: HEMATOCRIT 23.7 % (36.0-48.0); MCH 24.4 pg (26.0-34.0); MCHC 31.6 g/dL (31.0-37.0); MCV 77.2 fL (80.0-100.0); MEAN PLATELET VOLUME 10.4 fL (7.4-10.4); PLATELET COUNT 113 10x3/uL (130-400); RBC 3.07 10x6/uL (4.00-5.40); RDW 15.3 % (11.5-14.5); WBC 2.8 10x3/uL (4.8-10.8)
[2019-01-18 09:48] LABS: HEMOGLOBIN 7.5 g/dL (12-16)
[2019-01-18 09:54] LABS: INR 1.12 (0.85-1.17); PROTIME 13.9 SECONDS (11.6-15.0)
[2019-01-18 10:02] LABS: BILIRUBIN - DIRECT 0.11 mg/dL (0.00-0.30); BILIRUBIN - INDIRECT 0.33 mg/dL (0.00-1.00); BILIRUBIN - TOTAL 0.44 mg/dL (0.2-1.3); PROTEIN - SERUM 6.4 g/dL (6.4-8.2)
[2019-01-18 12:35] LABS: LYMPHOCYTES 32 % (15-50); MONOCYTES 15 % (2-11); NEUTROPHILS 52 % (40-80); PLATELET ESTIMATE DECREASED
[2019-01-18 12:37] LABS: ROULEAUX OCC
== END | disposition home or self-care (01) ==
LOC: D.US 09:00
PROVIDERS: ATTEND Internal Medicine Gastroenterology
DX: K74.60 Unspecified cirrhosis of liver (principal)

== ENCOUNTER 2019-01-18 16:38 | Inpatient (IN) | payer MEDICARE, OTHER ==
[~2019-01-18] VITALS: Ht 170.2 cm; Wt 86.4 kg
[2019-01-18 17:29] LABS: BASOPHILS 0.3 % (0-2); EOSINOPHILS 2.2 % (0-7); HEMATOCRIT 25.2 % (36.0-48.0); LYMPHOCYTES 33.1 % (15-50); MCH 24.6 pg (26.0-34.0); MCHC 31.7 g/dL (31.0-37.0); MCV 77.5 fL (80.0-100.0); MEAN PLATELET VOLUME 10.3 fL (7.4-10.4); MONOCYTES 14.4 % (2-11); PLATELET COUNT 130 10x3/uL (130-400); RBC 3.25 10x6/uL (4.00-5.40); RDW 15.2 % (11.5-14.5)
[2019-01-18 17:31] LABS: WBC 3.6 10x3/uL (4.8-10.8)
[2019-01-18 17:47] LABS: ALBUMIN 3.2 g/dL (3.4-5.0); ANION GAP 17.5 mmol/L (8-16); BILIRUBIN - TOTAL 0.38 mg/dL (0.2-1.3); CALCIUM 8.9 mg/dL (8.5-10.1); CARBON DIOXIDE 20.6 mmol/L (21.0-32.0); POTASSIUM - SERUM 4.1 mmol/L (3.5-5.1); PROTEIN - SERUM 7.1 g/dL (6.4-8.2)
[2019-01-18 23:27] VITALS: BP 139/53
[2019-01-18 23:43] VITALS: BP 148/46
[2019-01-19 01:49] VITALS: BP 130/43; BMI 29.8
[2019-01-19 06:58] VITALS: BP 89/43
[2019-01-19 07:00] LABS: BASOPHILS 0.3 % (0-2); EOSINOPHILS 2.1 % (0-7); HEMATOCRIT 28.8 % (36.0-48.0); HEMOGLOBIN 9.4 g/dL (12-16); IMMATURE GRANULOCYTES 0.3 % (0-5); MCH 25.2 pg (26.0-34.0); MCHC 32.6 g/dL (31.0-37.0); MCV 77.2 fL (80.0-100.0); MEAN PLATELET VOLUME 11.2 fL (7.4-10.4); MONOCYTES 15.4 % (2-11); NEUTROPHILS 45.9 % (40-80); PLATELET COUNT 129 10x3/uL (130-400); RBC 3.73 10x6/uL (4.00-5.40); RDW 15.4 % (11.5-14.5); WBC 3.3 10x3/uL (4.8-10.8)
[2019-01-19 07:20] LABS: % SATURATION 39 % (15-55); IRON 190 ug/dl (35-150); TOTAL IRON BIND CAPACITY 486 ug/dl (260-445); UNSAT IRON BIND CAPACITY 296 ug/dl (150-375)
[2019-01-19 07:45] LABS: ALBUMIN 3.1 g/dL (3.4-5.0); ANION GAP 14.9 mmol/L (8-16); BILIRUBIN - TOTAL 1.19 mg/dL (0.2-1.3); CALCIUM 8.4 mg/dL (8.5-10.1); CARBON DIOXIDE 23.2 mmol/L (21.0-32.0); CREATININE - SERUM 1.1 mg/dL (0.6-1.3); MAGNESIUM - SERUM 1.2 mg/dL (1.8-2.4); POTASSIUM - SERUM 4.1 mmol/L (3.5-5.1); PROTEIN - SERUM 6.3 g/dL (6.4-8.2)
[2019-01-19 08:00] VITALS: BP 145/46
[2019-01-19 09:46] VITALS: Ht 170.2 cm; Wt 86.4 kg
--- NOTE | 2019-01-19 11:50 | MORECARE ---
CASE MANAGEMENT DISCHARGE SUMMARY PATIENT: LON POLLARD UNIT: [id number] ADM DATE: 01/18/19 AGE: 73 : [birth year] SEX: F ROOM/BED: D.1206 AUTHOR: ALO MARINO PHYSICIAN: REFERRING PHYSICIAN: SHANT RASHID DO DATE OF SERVICE: 01/19/19 Discharge Plan Patient Name: LON POLLARD Facility: [facility]:[place] : 1945 Planned Disposition: Home Anticipated Discharge Date: 01/19/19 Discharge Date: 01/19/2019 Expected LOS: 1 Initial Reviewer: [email or web address] Initial Review Date: 01/18/2019 Generated: 01/19/19 12:50 pm DCPIA - Discharge Planning Initial Assessment Updated by [email or web address]: Lucy Ly on 01/19/19 11:48 am * Is the patient Alert and Oriented? Yes * How many steps to enter\exit or inside your home? One * PCP Dr. Jones * Pharmacy [facility] * Preadmission Environment Home with Family * ADLs Independent * Equipment Bedside Commode Cane Rolling Walker * List name and contact numbers for known caregivers / representatives who currently or will assist patient after discharge: [facility] - [phone] * Verbal permission to speak to the caregivers and representatives has been obtained from the patient. Yes * Community resources currently utilized None * Additional services required to return to the preadmission environment? No * Can the patient safely return to the preadmission environment? Yes * Has this patient been hospitalized within the prior 30 days at any hospital? No Patient Name: LON POLLARD Page [phone] at 1150 All edits/amendments must be made on the electronic document DICTATION DATE: 01/19/19 1150 SOLDERER ASSEMBLY REPAIR: HALIE 01/19/19 1150 RPT#: [id number] DC DATE:01/19/19 STATUS: DIS IN [facility] [address] [place] [address] END OF REPORT
--- NOTE | 2019-01-19 11:59 | MORECARE ---
CASE MANAGEMENT DISCHARGE SUMMARY PATIENT: LON POLLARD UNIT: [id number] ADM DATE: 01/18/19 AGE: 73 : [birth year] SEX: F ROOM/BED: D.1206 AUTHOR: ALO MARINO PHYSICIAN: REFERRING PHYSICIAN: SHANT RASHID DO DATE OF SERVICE: 01/19/19 Discharge Plan Patient Name: LON POLLARD Facility: [facility]:[place] : 1945 Planned Disposition: Home Anticipated Discharge Date: 01/19/19 Discharge Date: 01/19/2019 Expected LOS: 1 Initial Reviewer: SARAH Initial Review Date: 01/18/2019 Generated: 01/19/19 12:59 pm DCP- Discharge Planning Updated by [email or web address]: Lucy Ly on 01/19/19 10:[address] Patient Name: LON POLLARD Admission Status: ER Accout number: [id number] Admission Date: 01-18-2019 : 1945 Admission Diagnosis: Attending: SHANT RASHID Current LOS: 1 Anticipated DC Date: 01-19-2019 Planned Disposition: Home Primary Insurance: MEDICARE A & B Discharge Planning Comments: DC PLAN: Return home with her independently. DC NEEDS: Denied dc needs at this time. CM met with patient to complete initial dc planning assessment. CM educated patient on the CM role and verbal consent given by patient to complete assessment. CM verified patient's address, phone number, and emergency contact phone numbers. Patient lives at home with her . At discharge patient plans to return home and feels this is a safe discharge. Patient is discharging home today. CM discussed availability of home health, rehab services, and medical equipment. Patient denied discharge needs at this time. Patient reports her will transport her home at time of discharge. CM will continue to follow and will assist as needed with dc plans/needs. Director Hospice Operations: Lucy Ly RN, [facility] DCPIA - Discharge Planning Initial Assessment Updated by [email or web address]: Lucy Ly on 01/19/19 11:48 am * Is the patient Alert and Oriented? Yes * How many steps to enter\exit or inside your home? One * PCP Dr. Jones * Pharmacy [facility] * Preadmission Environment Home with Family * ADLs Independent * Equipment Bedside Commode Cane Rolling Walker * List name and contact numbers for known caregivers / representatives who currently or will assist patient after discharge: John orantes - [phone] * Verbal permission to speak to the caregivers and representatives has been obtained from the patient. Yes * Community resources currently utilized None * Additional services required to return to the preadmission environment? No * Can the patient safely return to the preadmission environment? Yes * Has this patient been hospitalized within the prior 30 days at any hospital? No Last DP export: 01/19/19 10:50 a Patient Name: LON POLLARD Page 13609 at 1159 All edits/amendments must be made on the electronic document DICTATION DATE: 01/19/19 1159 TELEPHONE ANSWERING SERVICE OPERATOR: HALIE 01/19/19 1159 RPT#: [id number] DC DATE:01/19/19 STATUS: DIS IN [facility] [address] [place] [address] END OF REPORT
== END 2019-01-19 11:50 | disposition home or self-care (01) | DRG 812 ==
LOC: D.ER 16:38 → D.M3 21:44
PROVIDERS: Emergency Medicine; Family Medicine; ADMIT Family Medicine; ATTEND Family Medicine
DX: D64.9 Anemia, unspecified (principal); E11.40 Type 2 diabetes mellitus with diabetic neuropathy, unspecified; K74.60 Unspecified cirrhosis of liver; E11.65 Type 2 diabetes mellitus with hyperglycemia; I25.10 Atherosclerotic heart disease of native coronary artery without angina pectoris; I10 Essential (primary) hypertension; K21.9 Gastro-esophageal reflux disease without esophagitis; K75.81 Nonalcoholic steatohepatitis (NASH); M79.7 Fibromyalgia

== ENCOUNTER → 2019-04-16 09:11 | Outpatient (CLI) | payer MEDICARE, OTHER ==
[2019-01-19 09:46] VITALS: BMI 29.8
--- NOTE | 2019-04-20 14:43 | EC ---
PATIENT:LON POLLARD DATE OF SERVICE: 04/16/19 SEX: F MEDICAL RECORD: [id number] DATE OF : [birth year] [facility] AGE OF [facility]: 73 ADMISSION DATE: 04/16/19 REFERRING PHYSICIAN: INTERPRETING PHYSICIAN: ROGELIO GREENBERG MD ECHOCARDIOGRAM REPORT ECHO CHARGES 4 ECHO COMPLETE Date: 04/16/19 CLINICAL DIAGNOSIS: FATIGUE H/O HTN/CAD ECHOCARDIOGRAPHIC MEASUREMENTS (adult normal given) AC root (d.<3.7cm) 3.0 cm LV Septum d (<1.2 cm> 1.1 cm Valve Excursion 1.5 cm LV Septum (systole) 1.5 cm Left Atria (s.<4.0cm> 4.6 cm LVPW d(<1.2cm) 1.0 cm RV (d.<2.3cm) 2.7 cm LVPW (sytole) 1.9 cm LV diastole(<5.6CM) 5.8 cm MV E-F(>70mm/sec) cm LV systole 3.2 cm LVOT Diameter 2.0 cm MV exc.(>10mm) cm Est.ejection fraction (50-75%) % DOPPLER: LVIT cm/sec A 50.0 cm/sec E 120 cm/sec LA cm/sec RVSP 46.0 mmHg LVOT 72.0 cm/sec AOP1/2T m/s Asc. Ao 161 cm/sec RVOT 59.0 cm/sec RA cm/sec PA 91.0 cm/sec AV Gradient Peak 10.4 mmHg AV Mean 5.5 mmHg AV Area 1.3 cm MV Gradient Peak 7.3 mmHg MV Mean 2.2 mmHg MV Area cm COMMENTS: OP - HC Director Skills: 1 SANTANA KOSTA Tilesetter: 3 Dr. Nguyễn TAPE# PACS Pericardial Effusion N DATE OF SERVICE: Adequate 2D, color flow imaging, spectral Doppler, and M-Mode No LVH. LV internal dimensions are normal. Wall motion is normal. EF is greater than or equal to 55%. Aortic valve is sclerotic. There is no evidence of stenosis by Doppler interrogation. Left atrium is dilated at 4.6 cm. Mitral valve shows no prolapse. Mild MR. Right-sided chambers are grossly normal. [id number] TR. ECHOCARDIOGRAM REPORT [id number] LON POLLARD TRANSINT:[id number] Voice Confirmation ID: [id number] DOCUMENT ID: [id number] ROGELIO GREENBERG MD at 1443 CC: [id number] DICTATION DATE: 04/20/19 1304 MERCHANDISING COORDINATOR: 04/20/19 1353 DEP CLI 04/16/19 [facility] [address] [place] [id number]
== END | disposition home or self-care (01) ==
LOC: D.HCCECHO 09:11
PROVIDERS: ATTEND Internal Medicine Interventional Cardiology
DX: I08.1 Rheumatic disorders of both mitral and tricuspid valves (principal)

== ENCOUNTER → 2019-05-11 10:24 | Outpatient (CLI) | payer MEDICARE, OTHER ==
[2019-01-19 09:46] VITALS: BMI 29.8
[2019-05-11 10:48] LABS: BASOPHILS 0.3 % (0-2); EOSINOPHILS 2.1 % (0-7); HEMATOCRIT 29.3 % (36.0-48.0); HEMOGLOBIN 9.5 g/dL (12-16); LYMPHOCYTES 37.1 % (15-50); MCHC 32.4 g/dL (31.0-37.0); MCV 89.3 fL (80.0-100.0); MEAN PLATELET VOLUME 10.6 fL (7.4-10.4); MONOCYTES 12.2 % (2-11); NEUTROPHILS 48.3 % (40-80); PLATELET COUNT 132 10x3/uL (130-400); RBC 3.28 10x6/uL (4.00-5.40); WBC 3.4 10x3/uL (4.8-10.8)
[2019-05-11 10:55] LABS: BILIRUBIN - DIRECT 0.14 mg/dL (0.00-0.30); BILIRUBIN - INDIRECT 0.26 mg/dL (0.00-1.00); BILIRUBIN - TOTAL 0.4 mg/dL (0.2-1.3); PROTEIN - SERUM 6.1 g/dL (6.4-8.2)
[2019-05-11 11:16] LABS: INR 1.18 (0.85-1.17); PROTIME 14.5 SECONDS (11.6-15.0)
== END | disposition home or self-care (01) ==
LOC: D.LAB 10:24 → D.US 11:30
PROVIDERS: ATTEND Internal Medicine Gastroenterology
DX: K74.60 Unspecified cirrhosis of liver (principal)

== ENCOUNTER 2019-05-24 06:02 | Day surgery (SDC) | payer MEDICARE, OTHER ==
[~2019-05-24] VITALS: Ht 170.2 cm; Wt 88.6 kg
--- NOTE | ~2019-05-24 | OP ---
PATIENT NAME: LON POLLARD MEDICAL RECORD: [id number] :[birth year] LOCATION:D.OPS ADMISSION DATE: SURGEON: AZEEM SHARMA DO DATE OF OPERATION: 05/24/2019 PROCEDURE: EGD with variceal band ligation and biopsies. INDICATIONS FOR PROCEDURE: History of esophageal varices, ascites, heartburn, GERD, hyperammonemia. SCOPE: Olympus video gastroscope. MEDICATIONS: Propofol 150 mg IV per anesthesia. ESTIMATED BLOOD LOSS: Minimal. COMPLICATIONS: None. FINDINGS: Informed consent was given. The patient was made comfortable with the above medication. After reaching an adequate level of sedation by slow IV push, the patient was placed on her left side. The endoscope was advanced under direct visualization through the mouth to the second portion of the duodenum with ease. In the esophagus, there was evidence of grade II to grade III esophageal varices located in the mid to distal esophagus. It was really just one column that required banding. Two bands were placed using the [employer] speed metal burrer. At the GE junction, the squamocolumnar junction appeared normal. The endoscope was advanced beyond the GE junction into the stomach and retroflexed to view the cardia and fundus. There were no obvious esophageal varices. There was no hiatal hernia. Throughout the stomach, there was evidence of mild portal hypertensive gastropathy. There was some mild gastritis in the antrum and prepyloric region characterized by erythema, granularity, and friability. Cold forceps biopsies were taken to submit for histopathology and to rule out the presence of H. pylori. The endoscope was advanced beyond the pylorus into the duodenum, which appeared normal to the second portion. The endoscope was then withdrawn from the patient. The patient tolerated the procedure well and there were no complications. IMPRESSION: 1. Grade II to grade III esophageal varices, banding performed times 2. 2. Mild portal hypertensive gastropathy. 3. Mild gastritis of the antrum. PLAN AND RECOMMENDATIONS: 1. Discharge home when recovery parameters are met. 2. Follow up biopsy specimen results. 3. GERD diet and reflux precautions as well as a low sodium diet regarding the patient's cirrhosis. 4. Continue current medications including omeprazole 20 mg daily. 5. Repeat EGD in 4-6 weeks for further banding as indicated. TRANSINT:[id number] Voice Confirmation ID: [id number] DOCUMENT ID: [id number] OPERATIVE REPORT [id number] LON POLLARD NATHAN A DO CC: [id number] DICTATION DATE: 05/24/19828 MENTAL HEALTH COUNSELOR: 05/24/19 1229 [facility] 05/24/19 [place] [id number] [place] [id number]
[2019-05-24 06:49] LABS: APTT 29.4 SECONDS (22.8-39.4); INR 1.17 (0.85-1.17); PROTIME 14.3 SECONDS (11.6-15.0)
[2019-05-24 06:50] LABS: BASOPHILS 0.3 % (0-2); EOSINOPHILS 2.1 % (0-7); HEMATOCRIT 28.2 % (36.0-48.0); HEMOGLOBIN 9.1 g/dL (12-16); IMMATURE GRANULOCYTES 0.3 % (0-5); LYMPHOCYTES 33.4 % (15-50); MCH 28.5 pg (26.0-34.0); MCHC 32.3 g/dL (31.0-37.0); MCV 88.4 fL (80.0-100.0); MEAN PLATELET VOLUME 11.2 fL (7.4-10.4); MONOCYTES 12.6 % (2-11); NEUTROPHILS 51.3 % (40-80); PLATELET COUNT 120 10x3/uL (130-400); RBC 3.19 10x6/uL (4.00-5.40); RDW 13.8 % (11.5-14.5); WBC 3.3 10x3/uL (4.8-10.8)
[2019-05-24 07:00] LABS: ALBUMIN 3.2 g/dL (3.4-5.0); ANION GAP 15.3 mmol/L (8-16); BILIRUBIN - TOTAL 0.5 mg/dL (0.2-1.3); CALCIUM 8.4 mg/dL (8.5-10.1); CARBON DIOXIDE 25.5 mmol/L (21.0-32.0); CREATININE - SERUM 1.2 mg/dL (0.6-1.3); POTASSIUM - SERUM 3.8 mmol/L (3.5-5.1); PROTEIN - SERUM 6.8 g/dL (6.4-8.2)
[2019-05-24] MEDS ORDERED: ALDACTONE50 MG PO (07:27)
[2019-05-24] MEDS ORDERED: CHRONULAC30 ML PO (07:28)
[2019-05-24] MEDS ORDERED: XIFAXAN550 MG PO (07:28)
[2019-05-24] MEDS ORDERED: METAMUCIL SUGAR1 PKT PO (07:29)
[2019-05-24 07:32] VITALS: BP 118/63; Ht 170.2 cm; Wt 88.6 kg
--- NOTE | 2019-05-24 10:12 | NUR ---
0912 IV DC'D. CATHETER TIP INTACT. PRESSURE HELD UNTIL BLEEDING CEASE BANDAID APPLIED.
== END 2019-05-24 09:31 | disposition home or self-care (01) ==
LOC: D.OPS 06:02
PROVIDERS: ATTEND Internal Medicine Gastroenterology
DX: I85.00 Esophageal varices without bleeding (principal); R18.8 Other ascites; R12 Heartburn; K21.9 Gastro-esophageal reflux disease without esophagitis; E72.20 Disorder of urea cycle metabolism, unspecified; K74.60 Unspecified cirrhosis of liver; K76.6 Portal hypertension; I86.4 Gastric varices

== ENCOUNTER 2019-07-01 09:59 | Outpatient (CLI) | payer MEDICARE, OTHER ==
[~2019-07-01] VITALS: Ht 170.2 cm; Wt 87.7 kg
[~2019-07-01 09:59] MED LIST changes: +ALDACTONE50 MG PO; +CHRONULAC30 ML PO; +METAMUCIL SUGAR1 PKT PO; -VITAMIN B-121000 MCG PO; +VITAMIN B-121000 MCG SQ; +XIFAXAN550 MG PO
[2019-07-01 12:25] VITALS: BP 120/35; Ht 170.2 cm; Wt 87.7 kg
== END 2019-07-01 14:30 | disposition home or self-care (01) ==
LOC: D.OPS 09:59
PROVIDERS: ATTEND Internal Medicine Medical Oncology
DX: D64.9 Anemia, unspecified (principal)

== ENCOUNTER → 2019-11-02 14:55 | Outpatient (CLI) | payer MEDICARE, OTHER ==
[2019-07-12 13:09] VITALS: BMI 30.4
[2019-11-02 15:14] LABS: BASOPHILS 0.3 % (0-2); EOSINOPHILS 2.2 % (0-7); HEMOGLOBIN 8.6 g/dL (12-16); IMMATURE GRANULOCYTES 0.3 % (0-5); LYMPHOCYTES 34.3 % (15-50); MCH 29.5 pg (26.0-34.0); MCHC 31.9 g/dL (31.0-37.0); MCV 92.5 fL (80.0-100.0); MEAN PLATELET VOLUME 10.5 fL (7.4-10.4); NEUTROPHILS 49.9 % (40-80); PLATELET COUNT 137 10x3/uL (130-400); RBC 2.92 10x6/uL (4.00-5.40); RDW 14.3 % (11.5-14.5); WBC 3.2 10x3/uL (4.8-10.8)
[2019-11-02 15:53] LABS: ALBUMIN 3.5 g/dL (3.4-5.0); ANION GAP 18.1 mmol/L (8-16); BILIRUBIN - TOTAL 0.54 mg/dL (0.2-1.3); CREATININE - SERUM 1.6 mg/dL (0.6-1.3); POTASSIUM - SERUM 5.1 mmol/L (3.5-5.1); PROTEIN - SERUM 6.6 g/dL (6.4-8.2)
== END | disposition home or self-care (01) ==
LOC: D.LAB 14:55
PROVIDERS: ATTEND Internal Medicine Medical Oncology
DX: C53.8 Malignant neoplasm of overlapping sites of cervix uteri (principal); D64.81 Anemia due to antineoplastic chemotherapy; D50.9 Iron deficiency anemia, unspecified; D64.9 Anemia, unspecified; D50.0 Iron deficiency anemia secondary to blood loss (chronic); K90.49 Malabsorption due to intolerance, not elsewhere classified; D51.9 Vitamin B12 deficiency anemia, unspecified

== ENCOUNTER 2019-12-08 12:42 | Outpatient (CLI) | payer MEDICARE, OTHER ==
[~2019-12-08] VITALS: Ht 170.2 cm; Wt 86.4 kg
[2019-12-08 15:03] VITALS: BP 144/49; Ht 170.2 cm; Wt 86.4 kg
--- NOTE | 2019-12-08 15:30 | NUR ---
NOTIFIED ARCHANA ARZATE IN INFECTION CONTROL ABOUT PREVIOUS OVERNIGHT STAY FOR BLOOD. NOT CONSIDERED HIGH RISK. NO ACTIONS NEEDED.
--- NOTE | 2019-12-08 17:00 | NUR ---
1605 1ST UNIT OF BLOOD CHECKED AT BEDSIDE BY THIS NURSE AND URI OWUSU RN. INITIATED AT 50/CC/HR. 1620 DENIES PROBLEMS WITH BLOOD, RATE INCREASED TO 250/CC/HR.. 1635 ASSISSTED UP TO BR VOIDS LG AMT. 1650 DENIES PROBLEMS WITH BLOOD. IV SITE GOOD. CALL LIGHT AT SIDE. WATCHING TV.
--- NOTE | 2019-12-08 17:18 | NUR ---
1705 BLOOD INFUSING WELL, JUST OVER HALF COMPLETED FIRST UNIT, DENIES PROBLEMS. IV SITE GOOD. WATCHING TV.
--- NOTE | 2019-12-08 18:00 | NUR ---
1745 1ST UNIT BLOOD HAS COMPLETED, LINE FLUSHED WITH NS. 1750 2ND UNIT BLOOD CHECKED AT BEDSIDE BY THIS NURSE AND URI OWUSU RN, INITIATED AT 50/CC/HR. WATER SERVED.
--- NOTE | 2019-12-08 18:11 | NUR ---
1805 IV SITE GOOD, DENIES PROBLEMS WITH BLOOD, RATE INCREASED TO 250/CC/HR,
--- NOTE | 2019-12-08 18:32 | NUR ---
1830 ASSISSTED UP TO BR, VOIDS QS, DENIES PROBLEMS.
--- NOTE | 2019-12-08 18:53 | NUR ---
1845 DENIES PROBLEMS, IV SITE GOOD, WATCHING TV, CONTINUE MONITORING.
--- NOTE | 2019-12-08 19:12 | NUR ---
1910 BLOOD NEAR COMPLETION, DENIES PROBLEMS.
--- NOTE | 2019-12-08 20:03 | NUR ---
1939 NO PROBLEMS WITH BLOOD, IV DC'D WITH CATH INTACT DC INSTS GIVEN, VOICED UNDERSTANDING, UP TO BR VOIDS QS, RELEASED IN WC.
== END 2019-12-08 19:58 | disposition home or self-care (01) ==
LOC: D.OPS 12:42
PROVIDERS: ATTEND Internal Medicine Medical Oncology
DX: D64.9 Anemia, unspecified (principal)

== ENCOUNTER → 2020-01-21 10:55 | Outpatient (CLI) | payer MEDICARE, OTHER ==
[2019-12-08 15:03] VITALS: BMI 29.8
[2020-01-21 11:47] LABS: HEMATOCRIT 24.6 % (36.0-48.0); HEMOGLOBIN 8.1 g/dL (12-16); MCH 30.1 pg (26.0-34.0); MCHC 32.9 g/dL (31.0-37.0); MCV 91.4 fL (80.0-100.0); MEAN PLATELET VOLUME 10.3 fL (7.4-10.4); PLATELET COUNT 129 10x3/uL (130-400); RBC 2.69 10x6/uL (4.00-5.40); RDW 21.3 % (11.5-14.5); WBC 2.7 10x3/uL (4.8-10.8)
[2020-01-21 11:51] LABS: INR 1.09 (0.85-1.17)
[2020-01-21 11:54] LABS: ALBUMIN 3.1 g/dL (3.4-5.0); BILIRUBIN - DIRECT 0.17 mg/dL (0.00-0.30); BILIRUBIN - INDIRECT 0.36 mg/dL (0.00-1.00); BILIRUBIN - TOTAL 0.53 mg/dL (0.2-1.3); PROTEIN - SERUM 6.2 g/dL (6.4-8.2)
[2020-01-21 14:13] LABS: EOSINOPHILS 1 % (0-7); LYMPHOCYTES 30 % (15-50); MONOCYTES 15 % (2-11); NEUTROPHILS 53 % (40-80); PLATELET ESTIMATE NORMAL
== END | disposition home or self-care (01) ==
LOC: D.LAB 11-10 09:00 → D.US 11-10 09:00 → D.LAB 11-10 09:30 → D.US 10:55
PROVIDERS: ATTEND Internal Medicine Gastroenterology
DX: K74.60 Unspecified cirrhosis of liver (principal)

== ENCOUNTER 2020-07-26 06:43 | Day surgery (SDC) | payer MEDICARE, OTHER ==
--- NOTE | 2020-07-25 12:58 | NUR ---
CONFIRMED WITH PT TIME OF ARRIVAL, NPO STATUS, STOPPED THINNER LAST FRIDAY, PT HAS TICKET TAKER. PT VERBALIZED UNDERSTANDING.
[~2020-07-26] VITALS: Ht 167.6 cm; Wt 86.4 kg
[~2020-07-26 06:43] MED LIST changes: +CYANOCOBAL1000 MCG/4 SC; +GLUCOSAMINE/CONDROIT PO; +IRON
[2020-07-26 07:42] VITALS: BP 130/48; Ht 167.6 cm; Wt 86.4 kg
[2020-07-26 07:46] LABS: APTT 29.9 SECONDS (22.8-39.4); INR 1.29 (0.85-1.17); PROTIME 14.9 SECONDS (11.6-15.0)
[2020-07-26 07:56] LABS: ALBUMIN 2.7 g/dL (3.4-5.0); ANION GAP 15.7 mmol/L (8-16); BILIRUBIN - TOTAL 0.45 mg/dL (0.2-1.3); CALCIUM 8.6 mg/dL (8.5-10.1); CARBON DIOXIDE 21.6 mmol/L (21.0-32.0); CREATININE - SERUM 1.7 mg/dL (0.6-1.3); POTASSIUM - SERUM 4.3 mmol/L (3.5-5.1)
[2020-07-26 07:57] LABS: BASOPHILS 0.2 % (0-2); EOSINOPHILS 2.8 % (0-7); HEMATOCRIT 22.9 % (36.0-48.0); IMMATURE GRANULOCYTES 0.2 % (0-5); LYMPHOCYTE ABS# 1.31 10x3/uL (1.18-3.74); LYMPHOCYTES 24.7 % (15-50); MCH 27.4 pg (26.0-34.0); MCV 88.4 fL (80.0-100.0); MONOCYTES 12.3 % (2-11); NEUTROPHIL ABS# 3.17 10x3/uL (1.56-6.13); NEUTROPHILS 59.8 % (40-80); PLATELET COUNT 212 10x3/uL (130-400); RBC 2.59 10x6/uL (4.00-5.40); RDW 16.7 % (11.5-14.5); WBC 5.3 10x3/uL (4.8-10.8)
[2020-07-26 07:59] LABS: HEMOGLOBIN 7.1 g/dL (12-16)
--- NOTE | 2020-07-26 12:27 | NUR ---
1215 IV REMOVED AND PRESSURE HELD. SLIGHTLY NAUSEATED.
--- NOTE | 2020-07-26 13:11 | NUR ---
1300 INSTRUCTIONS GIVEN AND PT LESS NAUSEATED.
== END 2020-07-26 13:00 | disposition home or self-care (01) ==
LOC: D.SP 06:43 → EDSTATUS 10:00 → D.SP 10:00
PROVIDERS: Radiology Vascular & Interventional Radiology; ATTEND Internal Medicine Gastroenterology
DX: R18.8 Other ascites (principal); I10 Essential (primary) hypertension; E11.9 Type 2 diabetes mellitus without complications; E07.9 Disorder of thyroid, unspecified

== ENCOUNTER 2020-09-07 04:48 | Observation (INO) | payer MEDICARE, OTHER ==
[~2020-09-07] VITALS: Ht 167.6 cm; Wt 86.4 kg
[2020-09-07 06:25] LABS: BASOPHILS 0.2 % (0-2); EOSINOPHILS 0 % (0-7); HEMATOCRIT 27.9 % (36.0-48.0); HEMOGLOBIN 8.9 g/dL (12-16); IMMATURE GRANULOCYTES 0.2 % (0-5); LYMPHOCYTE ABS# 0.53 10x3/uL (1.18-3.74); LYMPHOCYTES 11.7 % (15-50); MCH 29.6 pg (26.0-34.0); MCHC 31.9 g/dL (31.0-37.0); MCV 92.7 fL (80.0-100.0); MEAN PLATELET VOLUME 11.6 fL (7.4-10.4); MONOCYTES 10.8 % (2-11); NEUTROPHILS 77.1 % (40-80); RBC 3.01 10x6/uL (4.00-5.40); WBC 4.5 10x3/uL (4.8-10.8)
[2020-09-07 06:31] LABS: CALC OSMOLALITY 272 mosm/kg (275-300); CALCIUM 8.1 mg/dL (8.5-10.1); CARBON DIOXIDE 23.9 mmol/L (21.0-32.0); CHLORIDE - SERUM 100 mmol/L (98-107); CREATININE - SERUM 1.9 mg/dL (0.6-1.3); POTASSIUM - SERUM 3.5 mmol/L (3.5-5.1); SODIUM 134 mmol/L (136-145); UREA NITROGEN 33 mg/dL (7-18); eGFR NON AFRICAN AMERICAN 27 mL/min (90-120)
[2020-09-07 06:33] LABS: GLUCOSE 64 mg/dL (74-106)
[2020-09-07 06:39] LABS: PLATELET COUNT 121 10x3/uL (130-400)
[2020-09-07 06:44] LABS: ALBUMIN 2.4 g/dL (3.4-5.0); ALKALINE PHOSPHATASE 81 U/L (30-120); ALT (SGPT) 16 U/L (10-68); AMYLASE - SERUM 15 U/L (25-115); BILIRUBIN - TOTAL 0.94 mg/dL (0.2-1.3); LIPASE 57 U/L (73-393); PRO BNP 1608 pg/mL (0-125); PROTEIN - SERUM 5.3 g/dL (6.4-8.2); TROPONIN-I < 0.017 ng/mL (0.000-0.060)
[2020-09-07 07:45] VITALS: BP 109/52
[2020-09-07 08:18] VITALS: BP 134/47; Ht 167.6 cm; Wt 86.4 kg
[2020-09-07 08:18] LABS: INR 1.55 (0.85-1.17); PROTIME 17.2 SECONDS (11.6-15.0)
--- NOTE | 2020-09-07 08:44 | NUR ---
RECIEVED PT FROM ER VIA STRETCHER. AT BEDSIDE. PT AWAKE. PURWICK IN PLACE. BED LOW POSITION, CALL LIGHT IN REACH. WILL CONTINUE TO MONITOR.
[2020-09-07 12:28] VITALS: BP 124/53
[2020-09-07 15:49] VITALS: BP 125/81
--- NOTE | 2020-09-07 16:40 | NUR ---
CHECKED BLOOD SUGAR. RESULT WAS 40. ADMINISTERED THE DEXTROSE SYRINGE. RECHECKED AND RESULTED AT 103. LEFT UNIT VIA BED TO PROCEDURE.
[2020-09-07 20:00] VITALS: BP 108/46
[2020-09-08 00:48] VITALS: BP 110/52
[2020-09-08 04:00] VITALS: BP 98/56
--- NOTE | 2020-09-08 04:46 | NUR ---
PATIENT BP LOW. RECHECK WITH MANUAL CUFF FOR 98/56. DENIES HYPOTENSIVE SYMPTOMS. PATIENT APPEARS DIAPHORETIC. BLOOD GLUCOSE CHECKED, 66. APPLE JUICE GIVEN TO PATIENT.
[2020-09-08 07:55] LABS: BASOPHILS 0 % (0-2); EOSINOPHILS 0.4 % (0-7); HEMATOCRIT 23.2 % (36.0-48.0); IMMATURE GRANULOCYTES 0.4 % (0-5); LYMPHOCYTE ABS# 0.74 10x3/uL (1.18-3.74); MCH 29.5 pg (26.0-34.0); MCHC 32.3 g/dL (31.0-37.0); MCV 91.3 fL (80.0-100.0); MEAN PLATELET VOLUME 11.3 fL (7.4-10.4); MONOCYTES 10.8 % (2-11); NEUTROPHILS 56.4 % (40-80); PLATELET COUNT 108 10x3/uL (130-400); RBC 2.54 10x6/uL (4.00-5.40); RDW 16.6 % (11.5-14.5); WBC 2.3 10x3/uL (4.8-10.8)
[2020-09-08 07:56] LABS: ANION GAP 13.7 mmol/L (8-16); CALCIUM 8.4 mg/dL (8.5-10.1); CREATININE - SERUM 1.6 mg/dL (0.6-1.3); MAGNESIUM - SERUM 1.6 mg/dL (1.8-2.4); POTASSIUM - SERUM 3.7 mmol/L (3.5-5.1)
[2020-09-08 07:57] LABS: HEMOGLOBIN 7.5 g/dL (12-16)
--- NOTE | 2020-09-08 08:15 | NUR ---
NOTIFIED PSYCHIATRIC RN OF CRITICAL HEMOGLOBIN 7.5. NO NEW ORDERS NOTED AT THIS TIME.
[2020-09-08 08:44] VITALS: BP 115/41
--- NOTE | 2020-09-08 12:20 | NUR ---
1 UNITS OF PRBC INITIATED PATIENT STATES SHE HAS RECEIVED BLOOD BEFORE WITH NO ADVERSE REACTIONS NOTED. WILL CONTINUE TO MONITOR.
[2020-09-08 13:54] VITALS: BP 112/44
--- NOTE | 2020-09-08 15:20 | NUR ---
BLLOD TRANSFUSION COMPLETE PATIENT TOLERATED WELL WITH NO ADVERSE REACTIONS NOTED. WILL CONTINUE TO MONITOR.
[2020-09-08 16:09] LABS: HEMATOCRIT 32.6 % (36.0-48.0); HEMOGLOBIN 10.5 g/dL (12-16)
[2020-09-08 17:11] VITALS: BP 135/93
[2020-09-08 17:16] LABS: BACTERIA FEW HPF (NONE SEEN); BILIRUBIN NEGATIVE (NEGATIVE); KETONE NEGATIVE (NEGATIVE); NITRITE NEGATIVE (NEGATIVE); SQUAMOUS EPITHELIAL 0-5 HPF (0-4); UROBILINOGEN NORMAL mg/dL (< 2)
[2020-09-08 19:36] VITALS: BP 133/49
== END 2020-09-08 21:13 | disposition home or self-care (01) ==
LOC: D.ER 04:48 → D.MS 06:54 → OBSVTIME 06:54 → D.MS 09-08 21:13
PROVIDERS: Family Medicine; Radiology Vascular & Interventional Radiology; ADMIT Family Medicine; ATTEND Family Medicine
DX: R18.8 Other ascites (principal); E11.40 Type 2 diabetes mellitus with diabetic neuropathy, unspecified; K21.9 Gastro-esophageal reflux disease without esophagitis; Z79.84 Long term (current) use of oral hypoglycemic drugs; E03.9 Hypothyroidism, unspecified; G25.81 Restless legs syndrome; R14.0 Abdominal distension (gaseous); I25.10 Atherosclerotic heart disease of native coronary artery without angina pectoris; I10 Essential (primary) hypertension; M79.7 Fibromyalgia; K75.81 Nonalcoholic steatohepatitis (NASH); K74.60 Unspecified cirrhosis of liver; K59.00 Constipation, unspecified; E87.1 Hypo-osmolality and hyponatremia; D61.818 Other pancytopenia

== ENCOUNTER 2020-10-11 06:36 | Day surgery (SDC) | payer MEDICARE, OTHER ==
--- NOTE | 2020-10-10 14:43 | NUR ---
APPOINTMENT CONFIRMED
[~2020-10-11] VITALS: Ht 167.6 cm; Wt 84.5 kg
[2020-10-11 06:54] LABS: BASOPHILS 0.3 % (0-2); HEMATOCRIT 25.3 % (36.0-48.0); HEMOGLOBIN 8.2 g/dL (12-16); IMMATURE GRANULOCYTES 0.3 % (0-5); LYMPHOCYTE ABS# 1.14 10x3/uL (1.18-3.74); LYMPHOCYTES 35.5 % (15-50); MCH 29.3 pg (26.0-34.0); MCHC 32.4 g/dL (31.0-37.0); MCV 90.4 fL (80.0-100.0); MEAN PLATELET VOLUME 9.5 fL (7.4-10.4); MONOCYTES 13.4 % (2-11); NEUTROPHIL ABS# 1.46 10x3/uL (1.56-6.13); NEUTROPHILS 45.5 % (40-80); RDW 16.3 % (11.5-14.5); WBC 3.2 10x3/uL (4.8-10.8)
[2020-10-11 06:56] LABS: PLATELET COUNT 142 10x3/uL (130-400)
[2020-10-11 07:02] LABS: APTT 28.4 SECONDS (22.8-39.4); INR 1.3 (0.85-1.17)
[2020-10-11 07:08] LABS: ALBUMIN 2.6 g/dL (3.4-5.0); ANION GAP 12.5 mmol/L (8-16); BILIRUBIN - TOTAL 0.46 mg/dL (0.2-1.3); CALCIUM 8.7 mg/dL (8.5-10.1); CARBON DIOXIDE 26.4 mmol/L (21.0-32.0); CREATININE - SERUM 1.7 mg/dL (0.6-1.3); POTASSIUM - SERUM 3.9 mmol/L (3.5-5.1)
[2020-10-11] MEDS ORDERED: CYANOCOBAL1000 MCG/4 IM (07:10)
[2020-10-11] MEDS ORDERED: GLUCOSAMINE HC500 MG PO (07:11)
[2020-10-11] MEDS ORDERED: MECLIZINE HCL25 MG PO (07:12)
[2020-10-11] MEDS ORDERED: REMERON15 MG PO (07:12)
[2020-10-11] MEDS ORDERED: ZOFRAN4 MG PO (07:13)
[2020-10-11] MEDS ORDERED: ALDACTONE100 MG PO (07:13)
[2020-10-11] MEDS ORDERED: OMEPRAZOLE20 M1 PO (07:13)
[2020-10-11] MEDS ORDERED: VITAMIN E1000 UNI1 PO (07:14)
[2020-10-11] MEDS ORDERED: ZYRTEC10 MG PO (07:15)
[2020-10-11] MEDS ORDERED: XIFAXAN550 MG PO (07:15)
[2020-10-11 07:18] VITALS: BP 108/41; Ht 167.6 cm; Wt 84.5 kg
--- NOTE | 2020-10-11 11:14 | NUR ---
IV REMOVED AT 1100 PRESSURE HELD. CATHETER INTACT. INSTRUCTIONS GIVEN
== END 2020-10-11 12:05 | disposition home or self-care (01) ==
LOC: D.SP 06:36 → D.CT 09:00 → D.SP 09:00
PROVIDERS: General Practice; ATTEND Internal Medicine Gastroenterology
DX: R18.8 Other ascites (principal)

== ENCOUNTER 2020-11-01 10:17 | Inpatient (IN) | payer MEDICARE, OTHER ==
--- NOTE | 2020-10-31 12:09 | NUR ---
CONFIRMED PT PROCEDURE FOR 11/01/20 NPO AFTER MIDNIGHT: YES SWEEP MOLDER: YES ARRIVAL: 1000 THINNER: ASA HELD FOR PAST 5 DAYS
[2020-11-01] VITALS (13 sets, daily range): BP systolic 110–136; BP diastolic 31–51; Ht 167.6 cm; Wt 76.6 kg
[~2020-11-01] VITALS: Ht 167.6 cm; Wt 76.6 kg
--- NOTE | ~2020-11-01 | HEMODYNAMI ---
PATIENT:LON POLLARD MEDICAL RECORD: [id number] : 49 LOCATION:[facility] [id number] ADMISSION DATE: 11/01/20 Generatedon:114:27 Patient name: LON POLLARD Patient #: [id number] SSN: : 1945 Date of study: 11/01/2020 Page: Of Hemodynamic Procedure Report Patient Data Patient Demographics Procedure consent was obtained First Name: LON Gender: Female Last Name: ATUL : 1945 [facility] Initial: D Age: 75 year(s) Patient #: [id number] Race: Unknown Additional ID: [id number] Contact details [address]: [address] [place] [address] State: [place] City: [place] Zip code: [address] Past Medical History Allergies Allergen Reaction Date Comments Reported Other 11/01/2020 statin,codeine,corticosteroids,asa,nsaid,steroids allergy Admission Admission Data Admission Date: 11/01/2020 Admission Time: 12:26 Room #: [facility] Procedure Procedure Types Cath Procedure Peripheral Cath Diagnostic Procedure Panel Wirer Peripheral Procedures Liver TIPSS Procedure Description Procedure Date Procedure Date: 11/01/2020 Procedure Start Time: 13:04 Procedure Staff Name Function Cyril Soliman MD Performing Physician Mirian Sanchez RT Door To Door Lead Generation Megan Herman RN Nurse Camila Rabago RN Nurse Carrillo Richter RT Scrub Procedure Data Cath Procedure Fluoroscopy Diagnostic fluoroscopy Total fluoroscopy Time: time: 18.9 min 18.9 min Diagnostic fluoroscopy Total fluoroscopy dose: dose: 1253 mGy 1253 mGy Contrast Material Contrast Material Type Amount (ml) Isovue 300 40 Diagnostic catheters Device Type Used For End Catheter Placement Merit UHF Pigtail VESSEL SIZING 5Fr 65CM catheter ([id number]) Procedure Medications Medication Administration Route Dosage Heparin Flush Bag added to field 3 bags (1000units/500ml NS) Lidocaine 1% added to field 20 Hemodynamics Rest Heart Rate: 62 (bpm) Pressure Samples Time Site Value (mmHg) Purpose Heart Use Rate(bpm) 13:17 RA 13/12(11) Snapshot 66 13:27 RA 22(19) Snapshot 62 13:50 RA (26) Snapshot 57 14:11 RA (23) Snapshot 62 14:13 RA (17) Snapshot 61 Snapshots Pre Cath Intra NCS Post Cath Medications Time Medication Route Dose Verified Delivered Reason Notes Effe ctiveness by by 12:55:07 Heparin Flush added 3bags Cyril Nam used for Bag to Jourdan Soliman procedure (1000units/500ml field MD CANALES NS) 12:55:22 Lidocaine 1% added 20ml Cyril Nam for local to vial Jourdan Soliman anesthetic field MD CANALES Procedure Log Time Note 11:47:19 Use device set IR Diagnostic 11:47:50 Micropuncture VSI 4FR kit opened to sterile field. 11:47:51 BENTSON 145cm wire ([id number]) opened to sterile field. 11:47:52 Tegaderm 4 x 4 (1626W) opened to sterile field. 11:47:53 Sterile Angiographic Pack opened to sterile field. 11:47:56 Bag Decanter (2002S) opened to sterile field. 11:47:56 ACIST Manifold (36371) opened to sterile field. 11:47:59 ACIST Syringe (72283) opened to sterile field. 11:48:00 ACIST Hand Control (30110) opened to sterile field. 11:48:30 GLIDE WIRE ANGLE 260cm (YR4025) opened to sterile field. 11:48:30 KIT, TRANSJUGULAR LIVER ACCESS R opened to sterile field. 11:48:32 INFLATOR BasixTOUCH (XM3001) opened to sterile field. 11:48:41 PONCE 260 wire (U55467) opened to sterile field. 11:49:40 TUBING Contrast Injection High Pressure (CTQ254L) opened to sterile field. 11:49:41 TUBING Contrast Injection High Pressure (VYV596E) opened to sterile field. 12:10:36 Time tracking: Regular hours (M-F 7:00 - 5:00) 12:10:51 Plan of Care:Hemodynamics will remain stable., Cardiac rhythm will remain stable., Comfort level will be maintained., Respiratory function will remain adequate., Patient/ family verbilizes understanding of procedure., Procedure tolerated without complication., Recovers from procedure without complications.. 12:10:58 Patient received from Outpatients to IR Alert and oriented. Tansferred to table in Supine position. 12:11:03 Signed procedure consent form obtained from patient. 12:11:16 H&P Date Dictated: 11/01/2020 Within 30 days and on chart., H&P Addendum completed by physician on day of procedure. (MUST COMPLETE FOR ALL OUTPATIENTS). 12:11:18 Pre-procedure instructions explained to patient. 12:11:19 Pre-op teaching completed and patient verbalized understanding. 12:11:21 Family in waiting room. 12:11:23 Patient NPO since Midnight. 12:12:31 Patient allergic to Other allergystatin,codeine,corticosteroids,asa,nsaid,steroids 12:15:14 Is the patient allergic to Iodine/contrast media? No. 12:15:18 Is patient on blood thinner?No 12:16:15 Patient diabetic? No. 12:16:19 - 12:16:43 ----Pre-sedation anethsthesia assessment.----see anesthesia notes for monitoring of patient during procedure 12:17:20 - 12:17:34 Left neck area was prepped with chlora-prep and draped in sterile fashion 12:17:36 Alarms reviewed by Peyton Mcclellan 12:54:18 A Apture UHF Pigtail VESSEL SIZING 5Fr 65CM catheter ([id number]) was advanced over the wire and used for . 12:55:07 Heparin Flush Bag (1000units/500ml NS) 3bags added to field was administered by Cyril Soliman MD; used for procedure; Verbal order read back and verified. 12:55:22 Lidocaine 1% 20ml vial added to field was administered by Cyril marx MD; for local anesthetic; Verbal order read back and verified. 12:55:47 Baseline sample Acquired. 12:59:39 - 12:59:42 Physician arrived 12:59:43 --------ALL STOP TIME OUT------ 12:59:43 Final Timeout: patient, procedure, and site verified with staff and physician. All members of the team are in agreement. 13:00:07 Fire Safety Assessment: A--An alcohol-based skin anteseptic being used preoperatively., B--The operative or invasive procedure is being performed above the xiphoid process or in the oropharynx., C--Open oxygen or nitrous oxide is being used. 13:03:33 Procedure started. 13:03:33 Full Disclosure recording started 13:04:33 Local anesthetic to Abdominal area with Lidocaine 1% by Cyril Soliman MD.INITIAL ACCESS ONLY 13:11:00 SHEATH 6FR [place] (HBL603) opened to sterile field. 13:16:46 Zero performed for pressure channel P1 13:17:00 Zero performed for pressure channel P1 13:17:19 Zero performed for pressure channel P1 13:25:02 AMPLATZ Short Taper 260cm wire ([id number]) opened to sterile field. 13:27:23 GLIDE CATHETER 4FR Straight 65cm (CG412) opened to sterile field. 13:45:29 TORQUE DEVICE PLASTIC .038 ( TD01) opened to sterile field. 13:49:02 Zero performed for pressure channel P1 14:06:24 VIATORR 10x7 stent ([id number]) was deployed across Undefined1 . 14:07:13 Inflate balloon Inflation number: 1 A Evercross 8 x 6 x 135 Balloon ([id number]) was prepped and advanced across the Undefined1 , then inflated . 14:07:44 STOPCOCK 3-Way Large Bore (E17721) opened to sterile field. 14:07:54 TUBING Contrast Injection High Pressure (SLK191J) opened to sterile field. 14:20:52 Procedure ended.(Physican Out) 14:22:04 Fluoroscopy time 18.90 minutes. 14:22:09 Fluoroscopy dose: 1253 mGy 14:22:09 Flurop Dose total: 1253 14:22:17 Contrast amount:Isovue 300 40ml. 14:22:19 Procedure and supply charges have been captured, reviewed, submitted an d are correct. 14:23:36 Report given to Recovery Room. Intervention Summary Intervention Notes Time ActionType Lesion and Equipment Used Action# Pressure Duration Attributes 14:06:24 Deploy self Undefined1 VIATORR 10x7 1 expanding stent stent ([id number]) 14:07:13 Inflate Undefined1 Evercross 8 x 6 1 0 00:00 balloon x 135 Balloon ([id number]) Device Usage Item Name Manufacture Quantity Catalog Number Hospital Part Current M inimal Lot# / Charge Number Stock Stock Serial# Code Micropuncture VSI VASCULAR 1 [id number] [id number] 898640 5 VSI 4FR kit SOLUTIONS BENTSON 145cm [employer] 1 [id number] 876828 657549 5 wire ([id number]) Tegaderm 4 x 4 3M 1 1626W 594843 246592 344841 5 (1626W) Sterile Cardinal 1 [id number] 153807 626650 5 Angiographic Health Pack Bag Decanter Microtek 1 2001S 452472 43573 813828 5 (2001S) Medical Inc. ACIST Manifold Acist 1 38062 816207 079367 432723 5 (93208) Medical Systems Inc ACIST Syringe Acist 1 26213 334732 459979 254399 2 0 (16372) Medical Systems Inc ACIST Hand Acist 1 11263 339823 078451 658958 5 Control (15142) Medical Systems Inc GLIDE WIRE Terumo 1 AV7587 737916 799017 148438 5 ANGLE 260cm (LN4148) KIT, [employer]ers Medical 1 Q43433 840084 064375 5 [id number] TRANSJUGULAR LIVER ACCESS R INFLATOR Merit 1 KM1472 068787 060891 260567 5 Tape TV (GM1117) PONCE 260 wire Cook Medical 1 O64607 420802 547465 139991 5 (D26267) TUBING Contrast Merit 3 [id number] 248359 291303 993404 5 Injection High Medical Pressure ([id number]) Merit UHF Merit 1 7602-20M65 784528 842938 5 Pigtail VESSEL Medical SIZING 5Fr 65CM catheter ([id number]) SHEATH 6FR Terumo 1 KIT372 489804 983678 223697 4 0 [place] Aqu[place] (URY033) AMPLATZ Short Freedom 1 [id number] 060118 859585 360290 5 Taper 260cm Scientific wire ([id number]) GLIDE CATHETER Terumo 1 CG412 270274 674552 5 4FR Straight 65cm (CG412) TORQUE DEVICE Freedom 1 TD01 104449 938139 297084 5 PLASTIC .038 ( Scientific TD01) VIATORR 10x7 [employer] [place] 1 [id number] 447933 805604 749051 5 [id number] stent ([id number]) Evercross 8 x 6 Medtronic 1 [id number] 356939 956656 190931 5 x 135 Balloon ([id number]) STOPCOCK 3-Way [employer] 1 G72972 689109 0032 111606 5 Large Bore (G28870) Signature Audit [place] Stage Time Signature Unsigned Intra-Procedure 11/01/2020 Mirian Sanchez 2:27:28 PM RT(R) [facility] [address] [place] [address]
[~2020-11-01 10:17] MED LIST changes: +CYANOCOBAL1000 MCG/4 IM; +GLUCOSAMINE HC500 MG PO; +MECLIZINE HCL25 MG PO; +OMEPRAZOLE20 M1 PO; +ZOFRAN4 MG PO
[2020-11-01 10:44] LABS: BASOPHILS 1.3 % (0-2); EOSINOPHILS 4.5 % (0-7); HEMATOCRIT 27.7 % (36.0-48.0); HEMOGLOBIN 9.4 g/dL (12-16); LYMPHOCYTES 25.7 % (15-50); MCH 31.2 pg (26.0-34.0); MCHC 33.8 g/dL (31.0-37.0); MCV 92.4 fL (80.0-100.0); MEAN PLATELET VOLUME 8.4 fL (7.4-10.4); MONOCYTES 13.2 % (2-11); NEUTROPHILS 55.3 % (40-80); PLATELET COUNT 136 10x3/uL (130-400); RBC 2.99 10x6/uL (4.00-5.40); RDW 17.3 % (11.5-14.5); WBC 3.2 10x3/uL (4.8-10.8)
[2020-11-01 10:55] LABS: INR 1.24 (0.85-1.17); PROTIME 14.4 SECONDS (11.6-15.0)
[2020-11-01 11:42] LABS: ALBUMIN 2.9 g/dL (3.4-5.0); ANION GAP 11.1 mmol/L (8-16); BILIRUBIN - TOTAL 0.63 mg/dL (0.2-1.3); CALCIUM 8.7 mg/dL (8.5-10.1); CARBON DIOXIDE 25.1 mmol/L (21.0-32.0); CREATININE - SERUM 1.7 mg/dL (0.6-1.3); POTASSIUM - SERUM 4.2 mmol/L (3.5-5.1); PROTEIN - SERUM 6.2 g/dL (6.4-8.2)
--- NOTE | 2020-11-01 15:20 | NUR ---
PT ON BEDPAN PER HER REQUEST
--- NOTE | 2020-11-01 16:00 | NUR ---
ARRIVED TO UNIT AROUND 1548. CONNECTED TO ALL PURPOSE CLERK. SPOUSE AT BEDSIDE. ON 2L 02 VIA NC. INCISION TO LEFT ANTERIOR NECK WITH DRESSING C/D/I. ABLE TO ROLL TO SIDE TO USE BEDPAN. RESTING COMFORTABLY. WILL CONTINUE TO MONITOR.
[2020-11-02] VITALS (30 sets, daily range): BP systolic 85–127; BP diastolic 24–67
[2020-11-02 05:23] LABS: HEMATOCRIT 24.2 % (36.0-48.0); HEMOGLOBIN 8.1 g/dL (12-16); MCH 31.2 pg (26.0-34.0); MCHC 33.5 g/dL (31.0-37.0); MCV 93.2 fL (80.0-100.0); MEAN PLATELET VOLUME 9.4 fL (7.4-10.4); RDW 16.9 % (11.5-14.5)
[2020-11-02 05:33] LABS: PLATELET COUNT 97 10x3/uL (130-400)
[2020-11-02 05:47] LABS: ALBUMIN 2.9 g/dL (3.4-5.0); BILIRUBIN - TOTAL 0.5 mg/dL (0.2-1.3); CALCIUM 8.4 mg/dL (8.5-10.1); CARBON DIOXIDE 23.4 mmol/L (21.0-32.0); CREATININE - SERUM 1.6 mg/dL (0.6-1.3); PROTEIN - SERUM 5.5 g/dL (6.4-8.2)
[2020-11-02 06:00] LABS: ANION GAP 12.7 mmol/L (8-16); POTASSIUM - SERUM 5.1 mmol/L (3.5-5.1)
[2020-11-02 06:29] LABS: LYMPHOCYTES 16 % (15-50); NEUTROPHILS 84 % (40-80); PLATELET ESTIMATE NORMAL
--- NOTE | 2020-11-02 07:13 | NUR ---
SHIFT REPORT RECEIVED. PT LAYING ON RIGHT SIDE. AROUSES TO VOICE. ON ROOM AIR. DENIES ANY PAIN AT INSITION SITE. PIV TO LEFT WRIST WITH NS AT 100ML/HR AT THIS TIME. CALL LIGHT IN REACH. WILL CONTINUE TO MONITOR.
--- NOTE | 2020-11-02 08:37 | NUR ---
CALL RECEIVED FROM CATHIE LAKHANI. PASSCODE VERIFIED. UPDATE GIVEN. WAS TOLD PT WAS STABLE BUT NEEDED TO STAY ONE MORE NIGHT FOR MONITORING.
--- NOTE | 2020-11-02 09:45 | NUR ---
AMBULATED TO BATHROOM WITH MINIMAL ASSIST. AM MEDS GIVEN. WILL CONTINUE TO MONITOR.
[2020-11-02 13:19] LABS: BASOPHILS 0.5 % (0-2); EOSINOPHILS 0.1 % (0-7); HEMATOCRIT 28.4 % (36.0-48.0); HEMOGLOBIN 9.3 g/dL (12-16); MCH 30.7 pg (26.0-34.0); MCHC 32.9 g/dL (31.0-37.0); MCV 93.4 fL (80.0-100.0); MEAN PLATELET VOLUME 8.9 fL (7.4-10.4); MONOCYTES 6.1 % (2-11); NEUTROPHILS 84.3 % (40-80); RBC 3.04 10x6/uL (4.00-5.40); RDW 17.1 % (11.5-14.5)
[2020-11-02 13:20] LABS: PLATELET COUNT 149 10x3/uL (130-400); WBC 5.9 10x3/uL (4.8-10.8)
--- NOTE | 2020-11-02 21:00 | NUR ---
A&O X 4. REPORTS MILD DISCOMFORT. DRESSING TO LEFT NNECK CDI. AMBULATES INDEPENDENTLY. SCDs APPLIED. DIASTOLIC BP 47. VS STABLE. CPOC.
[2020-11-03] VITALS: BP 102/50
[2020-11-03 01:00] VITALS: BP 98/36
[2020-11-03 02:00] VITALS: BP 102/39
[2020-11-03 03:00] VITALS: BP 99/44
--- NOTE | 2020-11-03 03:24 | NUR ---
I have reviewed this patient and I concur with the Shift Assessment completed by the Licensed Practical Nurse today this shift.
[2020-11-03 04:00] VITALS: BP 108/45
[2020-11-03 05:00] VITALS: BP 103/44
[2020-11-03 05:21] LABS: BASOPHILS 0.2 % (0-2); EOSINOPHILS 0.1 % (0-7); HEMOGLOBIN 8.6 g/dL (12-16); LYMPHOCYTES 11.7 % (15-50); MCH 30.9 pg (26.0-34.0); MCHC 33.1 g/dL (31.0-37.0); MCV 93.3 fL (80.0-100.0); MEAN PLATELET VOLUME 9.6 fL (7.4-10.4); MONOCYTES 10.5 % (2-11); NEUTROPHILS 77.5 % (40-80); PLATELET COUNT 121 10x3/uL (130-400); RBC 2.79 10x6/uL (4.00-5.40); RDW 17.4 % (11.5-14.5); WBC 5.6 10x3/uL (4.8-10.8)
[2020-11-03 05:43] LABS: ALBUMIN 2.7 g/dL (3.4-5.0); ANION GAP 13.7 mmol/L (8-16); BILIRUBIN - TOTAL 0.43 mg/dL (0.2-1.3); CALCIUM 8.1 mg/dL (8.5-10.1); CARBON DIOXIDE 22.1 mmol/L (21.0-32.0); CREATININE - SERUM 1.9 mg/dL (0.6-1.3); POTASSIUM - SERUM 4.8 mmol/L (3.5-5.1); PROTEIN - SERUM 5.2 g/dL (6.4-8.2)
== END 2020-11-03 10:00 | disposition home or self-care (01) | DRG 406 ==
LOC: D.SP 10:17 → D.SDCHOLD 12:26 → D.ICU 12:26 → D.SP 12:30 → D.RAD 13:00 → D.SP 13:00 → D.CVICU 15:06 → D.ICU 11-02 18:14
PROVIDERS: ADMIT Radiology Diagnostic Radiology; ATTEND Radiology Diagnostic Radiology
PROC: 0W9G3ZZ Drainage of Peritoneal Cavity, Percutaneous Approach (ICD-10-PCS; 2020-11-01)
PROC: 06183J4 Bypass Portal Vein to Hepatic Vein with Synthetic Substitute, Percutaneous Approach (ICD-10-PCS; principal; 2020-11-01 13:00)
DX: K75.81 Nonalcoholic steatohepatitis (NASH) (principal); R18.8 Other ascites; K76.6 Portal hypertension; D61.818 Other pancytopenia; K74.60 Unspecified cirrhosis of liver; E11.65 Type 2 diabetes mellitus with hyperglycemia; D64.9 Anemia, unspecified

== ENCOUNTER 2020-11-07 11:18 | Emergency (ER) | payer MEDICARE, OTHER ==
[~2020-11-07] VITALS: Ht 167.6 cm; Wt 65.9 kg
[2020-11-07 11:24] VITALS: BP 126/29; Ht 167.6 cm; Wt 65.9 kg
[2020-11-07 12:48] LABS: BASOPHILS 0.5 % (0-2); EOSINOPHILS 3.2 % (0-7); HEMATOCRIT 29.7 % (36.0-48.0); HEMOGLOBIN 9.9 g/dL (12-16); LYMPHOCYTES 15.4 % (15-50); MCHC 33.4 g/dL (31.0-37.0); MCV 92.8 fL (80.0-100.0); MEAN PLATELET VOLUME 8.3 fL (7.4-10.4); MONOCYTES 12.7 % (2-11); NEUTROPHILS 68.2 % (40-80); RDW 17.5 % (11.5-14.5)
[2020-11-07 12:51] LABS: PLATELET COUNT 174 10x3/uL (130-400)
[2020-11-07 12:56] LABS: ANION GAP 14.4 mmol/L (8-16); CALCIUM 8.6 mg/dL (8.5-10.1); CARBON DIOXIDE 23.7 mmol/L (21.0-32.0); CREATININE - SERUM 1.5 mg/dL (0.6-1.3); POTASSIUM - SERUM 4.1 mmol/L (3.5-5.1)
[2020-11-07 13:02] LABS: ALBUMIN 2.8 g/dL (3.4-5.0); BILIRUBIN - TOTAL 1.51 mg/dL (0.2-1.3); PROTEIN - SERUM 5.6 g/dL (6.4-8.2)
[2020-11-07 16:05] LABS: BILIRUBIN NEGATIVE (NEGATIVE); KETONE NEGATIVE (NEGATIVE); NITRITE NEGATIVE (NEGATIVE); UROBILINOGEN NORMAL mg/dL (< 2)
[2020-11-07 16:12] LABS: BACTERIA FEW HPF (NONE SEEN); WHITE CELLS - URINE 0-5 HPF (0-4)
[2020-11-07] MEDS ORDERED: PHENERGAN25 M1 PO (16:30)
[2020-11-07] MEDS ORDERED: MACROBID100 MG PO (16:31)
== END 2020-11-07 16:53 | disposition home or self-care (01) ==
LOC: D.ER 11:18
PROVIDERS: Family Medicine
DX: B34.9 Viral infection, unspecified (principal); E11.40 Type 2 diabetes mellitus with diabetic neuropathy, unspecified; K21.9 Gastro-esophageal reflux disease without esophagitis; Z79.84 Long term (current) use of oral hypoglycemic drugs

== ENCOUNTER → 2020-11-09 08:23 | Outpatient (CLI) | payer MEDICARE, OTHER ==
[2020-11-07 11:24] VITALS: BMI 23.4
[~2020-11-09 08:23] MED LIST changes: +MACROBID100 MG PO; +PHENERGAN25 M1 PO
[2020-11-09 09:14] LABS: ANION GAP 13.2 mmol/L (8-16); CALCIUM 7.7 mg/dL (8.5-10.1); CARBON DIOXIDE 24.7 mmol/L (21.0-32.0); CREATININE - SERUM 1.5 mg/dL (0.6-1.3)
[2020-11-09 09:15] LABS: POTASSIUM - SERUM 4.9 mmol/L (3.5-5.1)
[2020-11-09 09:19] LABS: ALBUMIN 2.4 g/dL (3.4-5.0); BILIRUBIN - TOTAL 1.39 mg/dL (0.2-1.3); PROTEIN - SERUM 4.4 g/dL (6.4-8.2)
== END | disposition home or self-care (01) ==
LOC: D.US 08:23
PROVIDERS: ATTEND Radiology Diagnostic Radiology
DX: K74.60 Unspecified cirrhosis of liver (principal); R18.8 Other ascites